=== PATIENT | female | born 1945 | race American Indian/Alaskan Native ===

== ENCOUNTER 2017-01-22 07:53 | Day surgery (SDC) | payer MEDICARE ==
[2017-01-22 08:31] VITALS: BMI 22.8
[2017-01-22 09:07] VITALS: O2SAT 100
--- NOTE | 2017-01-22 10:41 | CP.SDSHP ---
Same Day Surgery H & P - History Proposed Procedure: COLONSCOPY Pre-Op Diagnosis: SEE NOTES - Previous Medical/Surgical History Cardiac: Hypertension Endocrine/Metabolic: Diabetes Misc: Other Pain: 4.Moderate Pain - Allergies Allergies: Allergies No Known Allergies Allergy (Verified 01/22/17 08:31) - Physical Exam General Appearance: N Vital Signs: Vital Signs 01/22/17 08:05 Temperature 97.0 F L Pulse Rate 80 Respiratory 19 Rate Blood Pressure 132/56 L O2 Sat by Pulse 100 Oximetry Mental Status: Alert & Oriented x3 Neuro: WNL Heart: Other Lungs: WNL GI: Other - {Optional Preform as Required} Breast: WNL Abdomen: Other Rectal: Other Integument: WNL : WNL Ortho: WNL ENT: WNL - Impression Pt. Evaluated Today:Candidate for Anesthesia & Procedure: Yes - Date & Time Time: 10:42 Short Stay Discharge - Short Stay Discharge Admitting Diagnosis/Reason for Visit: ANEMIA / RECTAL BLEEDING Disposition: HOME/ ROUTINE
[2017-01-22] MEDS ORDERED: Belladonna-Phenobarbital PO ONE (10:43)
[2017-01-22] MEDS ORDERED: Lactated Ringer's 1,000 ML IV SCH (10:45)
[2017-01-22] MEDS ORDERED: Propofol 10 mg/ml Inj (20 ML) ONE (10:45)
[2017-01-22 13:22] VITALS: BP 152/68; PULSE 78; RESP 15; TEMP 97.6
== END 2017-01-22 12:45 | disposition home or self-care (01) ==
LOC: C.ENDO 07:53
PROVIDERS: ATTEND Specialist
DX: R10.9 Unspecified abdominal pain (principal); K58.9 Irritable bowel syndrome, unspecified; K64.8 Other hemorrhoids
CPT/HCPCS: 45380; 82948; 88305; J2704; J7120

== ENCOUNTER 2017-12-12 10:10 | Inpatient (IN) | payer MEDICARE ==
[2017-12-12 10:10] VITALS: BMI 22.8
[2017-12-12] MEDS ORDERED: Sodium Chloride 0.9% 1,000 ML IV STA (10:56)
--- NOTE | 2017-12-12 11:03 | C.PDOC ---
History Of Present Illness 72 y/o F c PMHx DM p/w hyperglycemia. Patient visited at home by PMD/nurse and found to have glucose 700 and called today to come to ED. Patient reports general fatigue and urinary frequency but denies fever, chills, chest pain, dyspnea, vomiting, diarrhea, dysuria, rash. Time Seen by Provider: 12/12/17 10:20 Chief Complaint (Nursing): High Blood Sugar Past Medical History Vital Signs: Last Vital Signs Temp 97.5 F L 12/12/17 10:16 Pulse 102 H 12/12/17 10:16 Resp 20 12/12/17 10:16 BP 123/82 12/12/17 10:16 Pulse Ox 100 12/12/17 11:03 - Medical History PMH: Anemia, Back Problems, Diabetes, HTN, Hypercholesterolemia, Pneumonia (2014 ) Denies: Fractures, Chronic Kidney Disease Surgical History: Endoscopy - [facility] Procedures CLOSED ENDOSCOPIC BIOPSY OF LARGE INTESTINE (08/12/14) EXCISION OF STOMACH, ENDO, DIAGN (10/30/15) VACCINATION NEC (08/15/14) Family History: States: Unknown Family Hx - Social History Hx Tobacco Use: Yes Hx Alcohol Use: No Hx Substance Use: No - Immunization History Hx Tetanus Toxoid Vaccination: No Hx Influenza Vaccination: No Hx Pneumococcal Vaccination: No Review Of Systems Except As Marked, All Systems Reviewed And Found Negative. Constitutional: Negative for: Fever Cardiovascular: Negative for: Chest Pain Physical Exam - Physical Exam Additional Physical Exam Comments: Gen: NAD Head: NC Eyes: No scleral icterus ENT: MMM Neck: Supple Chest: No deformity CV: Regular rate Lungs: CTA b/l Abd: Soft, NT Back: No CVA tenderness Skin: No rash Neuro: Alert, no focal deficit ED Course And Treatment - Laboratory Results Result Diagrams: 12/12/17 11:07 12/12/17 11:07 O2 Sat by Pulse Oximetry: 100 Medical Decision Making Medical Decision Making: Discussed case with Dr. Tre Gaviria, will rule out DKA, search for occult infection. Patient with hyperglycemia, acute renal insufficiency, will hydrate, insulin, Dr. Clayton accepts to his service. Disposition Discussed With : Sheldon Clayton - Disposition Disposition: HOSPITALIZED Disposition Time: 13:12 Condition: GUARDED Forms: [employer] ([place]) - Clinical Impression Clinical Impression: Diabetic ketoacidosis
[2017-12-12] MEDS ORDERED: Sodium Chloride 0.9% 1,000 ML ONE ×3 (11:07→17:25)
[2017-12-12 11:14] LABS: BASO % 0.7 % (0.0-2.0); EOS # 0.1 K/uL (0.0-0.7); EOS % 1.9 % (0.0-4.0); LYMPH # 0.8 K/uL (1.0-4.3); LYMPH % 14.9 % (20.0-40.0); MEAN CORPUSCULAR HEMOGLOBIN 32.2 pg (27.0-31.0); MEAN CORPUSCULAR HGB CONC 33.3 g/dL (33.0-37.0); MEAN PLATELET VOLUME 8.7 fL (7.2-11.7); MONO # 0.3 K/uL (0.0-0.8); MONO % 5.5 % (0.0-10.0); RBC 3.49 Mil/uL (3.80-5.20); RED CELL DISTRIBUTION WIDTH 13.9 % (11.5-14.5)
[2017-12-12 11:23] LABS: HEMOGLOBIN 11.2 g/dL (11.0-16.0); MEAN CELL VOLUME 96.6 fL (81.0-99.0); WHITE BLOOD COUNT 5.3 K/uL (4.8-10.8)
[2017-12-12 11:41] LABS: VENOUS BLOOD GAS BASE EXCESS -3.7 mmol/L (0.0-2.0); VENOUS BLOOD GAS PCO2 50 mmHg (40-60); VENOUS BLOOD GAS PO2 14 mm/Hg (30-55); VENOUS BLOOD PH 7.28 (7.32-7.43)
[2017-12-12 11:56] LABS: ALB/GLOB RATIO 1.2 (1.0-2.1); ALT/SGPT 18 U/L (9-52); AST/SGOT 22 U/L (14-36); BLOOD UREA NITROGEN 33 mg/dL (7-17); CALCIUM 9.6 mg/dl (8.6-10.4); GFR AFRICAN-AMERICAN 49; GFR NON-AFRICAN AMERICAN 40; LIPASE 81 U/L (23-300)
--- NOTE | 2017-12-12 12:11 | RAD ---
HISTORY: hyperglycemia COMPARISON: Chest x-ray performed 06/28/16 TECHNIQUE: Chest, one view. FINDINGS: Examination limited by patient obliquity. LUNGS: Mild patchy opacities in the right hilar/ infrahilar region; correlate clinically for possibility of infiltrate. Tiny left upper lobe calcified granulomas. Please note that chest x-ray has limited sensitivity for the detection of pulmonary masses. PLEURA: No significant pleural effusion identified. No definite pneumothorax . CARDIOVASCULAR: The cardiomediastinal silhouette appears within normal limits of size. OSSEOUS STRUCTURES: No acute osseous abnormality identified. VISUALIZED UPPER ABDOMEN: Unremarkable. OTHER FINDINGS: None. IMPRESSION: Mild patchy opacities in the right hilar/ infrahilar region; correlate clinically for possibility of infiltrate.
[2017-12-12] MEDS ORDERED: (Novolin R) Insulin Human Regular 100 units/ml vial SC STA (13:13)
[2017-12-12] MEDS ORDERED: (Novolin R) Insulin Human Regular 100 units/ml vial ONE (13:45)
[2017-12-12 14:35] LABS: SQUAMOUS EPITHIAL 1 /hpf (0-5); URINE BILIRUBIN NEGATIVE (NEGATIVE); URINE BLOOD NEGATIVE (NEGATIVE); URINE CLARITY Clear (Clear); URINE COLOR Straw (YELLOW); URINE GLUCOSE (UA) 3+ mg/dL (Normal); URINE LEUKOCYTE ESTERASE NEG Leu/uL (Negative); URINE NITRATE NEGATIVE (NEGATIVE); URINE PROTEIN 1+ mg/dL (NEGATIVE); URINE UROBILINOGEN NORMAL mg/dL (0.2-1.0)
[2017-12-12] MEDS: Sodium Chloride 0.9% 1,000 ML IV SCH (17:29)
[2017-12-12] MEDS: (Novolin R) Insulin Human Regular 100 units/ml vial SC SCH ×2 (17:48→21:31)
[2017-12-12] MEDS ORDERED: (Lantus) Insulin Glargine, Recombinant SC SCH (18:00)
[2017-12-12 19:38] LABS: BLOOD UREA NITROGEN 27 mg/dL (7-17); CALCIUM 9.7 mg/dl (8.6-10.4); GFR AFRICAN-AMERICAN 59; GFR NON-AFRICAN AMERICAN 49
--- NOTE | 2017-12-12 20:13 | CP.PCM.HP ---
History of Present Illness - History of Present Illness History of Present Illness: CC: Weakness x 3 days History Of Present Illness 72 y/o AA F well known to me with PMHx of type 2 DM p/w hyperglycemia, HTN, Hyperlipidemia, peripheral neuropaty who came in with c/o dizziness, weakness, polyuria, polydipsia, generalized weakness and fatigue since 3 days. Patient visited at home by nurse and found to have glucose 700 and called today to come to ED. Patient reports general fatigue and urinary frequency but denies fever, chills, chest pain, dyspnea, vomiting, diarrhea, dysuria, rash.she denies any cough, sore throat, chest pain Present on Admission - Present on Admission Any Indicators Present on Admission: Yes Review of Systems - Review of Systems Systems not reviewed;Unavailable: Acuity of Condition - Constitutional Constitutional: Fatigue, Lethargy, Malaise, Weakness - EENT Eyes: absent: As Per HPI, Blind Spots, Blurred Vision, Change in Vision, Decreased Night Vision, Diplopia, Discharge, Dry Eye, Exophthalmos, Floaters, Irritation, Itchy Eyes, Loss of Peripheral Vision, Pain, Photophobia, Requires Corrective Lenses, Sees Flashes, Spots in Vision, Tunnel Vision, Other Visual Disturbances, Loss of Vision, Other Ears: absent: As Per HPI, Decreased Hearing, Ear Discharge, Ear Pain, Tinnitus, Abnormal Hearing, Disequilibrium, Dizziness, Other Nose/Mouth/Throat: absent: As Per HPI, Epistaxis, Nasal Congestion, Nasal Discharge, Nasal Obstruction, Nasal Trauma, Nose Pain, Post Nasal Drip, Sinus Pain, Sinus Pressure, Bleeding Gums, Change in Voice, Dental Pain, Dry Mouth, Dysphagia, Halitosis, Hoarsness, Lip Swelling, Mouth Lesions, Mouth Pain, Odynophagia, Sore Throat, Throat Swelling, Tongue Swelling, Facial Pain, Neck Pain, Neck Mass, Other - Cardiovascular Cardiovascular: absent: As Per HPI, Acrocyanosis, Chest Pain, Chest Pain at Rest , Chest Pain with Activity, Claudication, Diaphoresis, Dyspnea, Dyspnea on Exertion, Edema, Irregular Heart Rhythm, Pain Radiating to Arm/Neck/Jaw, Leg Edema, Leg Ulcers, Lightheadedness, Orthopnea, Palpitations, Paroxysmal Nocturnal Dyspnea, Pedal Edema, Radiating Pain, Rapid Heart Rate, Slow Heart Rate, Syncope, Other - Respiratory Respiratory: absent: As Per HPI, Cough, Dyspnea, Hemoptysis, Dyspnea on Exertion , Wheezing, Snoring, Stridor, Pain on Inspiration, Chest Congestion, Excessive Mucous Production, Change in Mucous Color, Pain with Coughing, Other - Gastrointestinal Gastrointestinal: absent: As Per HPI, Abdominal Pain, Belching, Bloating, Change in Bowel Habits, Change in Stool Character, Coffee Ground Emesis, Constipation, Cramping, Diarrhea, Dyspepsia, Dysphagia, Early Satiety, Excessive Flatus, Fecal Incontinence, Heartburn, Hematemesis, Hematochezia, Loose Stools, Melena, Nausea, Odynophagia, Temesmus, Vomiting, Other - Genitourinary Genitourinary: Urinary Frequency. absent: As Per HPI, Change in Urinary Stream , Difficulty Urinating, Dysuria, Flank Pain, Hematuria, Pyuria, Nocturia, Urinary Incontinence, Urinary Hesitance, Urinary Urgency, Voiding Freq/Small Amts, Freq UTI, Hx Renal/Bladder Calculi, Hx /Renal Surgery, Bladder Distension, Other - Musculoskeletal Musculoskeletal: Muscle Weakness, Myalgias, Numbness - Integumentary Integumentary: Dry Skin - Neurological Neurological: Radicular Pain, Weakness - Endocrine Endocrine: Fatigue, Polyphagia, Polyuria Past Patient History - Infectious Disease Hx of Infectious Diseases: None - Past Medical History & Family History Past Medical History?: Yes - Past Social History Smoking Status: Light Smoker < 10 Cigarettes Daily - CARDIAC Hx Hypercholesterolemia: Yes Hx Hypertension: Yes - PULMONARY Hx Pneumonia: Yes (2014) - NEUROLOGICAL Hx Neurological Disorder: No - HEENT Hx HEENT Problems: Yes Hx Cataracts: Yes Hx Macular Degeneration: Yes Other/Comment: DIABETIC RETINOPATHY - RENAL Hx Chronic Kidney Disease: No - ENDOCRINE/METABOLIC Hx Endocrine Disorders: Yes Hx Diabetes Mellitus Type 1: Yes Hx Diabetes Mellitus Type 2: Yes - HEMATOLOGICAL/ONCOLOGICAL Hx Anemia: Yes Hx Blood Transfusions: Yes - INTEGUMENTARY Hx Dermatological Problems: No - MUSCULOSKELETAL/RHEUMATOLOGICAL Hx Arthritis: Yes Hx Falls: No Hx Fractures: No - GASTROINTESTINAL Hx Gastrointestinal Disorders: No - GENITOURINARY/GYNECOLOGICAL Hx Genitourinary Disorders: No - PSYCHIATRIC Hx Substance Use: No - SURGICAL HISTORY Hx Surgeries: Yes Hx Hysterectomy: Yes - ANESTHESIA Hx Anesthesia: Yes Hx Anesthesia Reactions: No Hx Malignant Hyperthermia: No Meds Allergies/Adverse Reactions: Allergies Allergy/AdvReac Type Severity Reaction Status Date / Time No Known Allergies Allergy Verified 01/22/17 08:31 Physical Exam - Constitutional Appears: No Acute Distress - Head Exam Head Exam: ATRAUMATIC, NORMAL INSPECTION, NORMOCEPHALIC - Eye Exam Eye Exam: EOMI, Normal appearance, PERRL Pupil Exam: NORMAL ACCOMODATION, PERRL - Respiratory Exam Respiratory Exam: Clear to Auscultation Bilateral, NORMAL BREATHING PATTERN - Cardiovascular Exam Cardiovascular Exam: REGULAR RHYTHM - GI/Abdominal Exam GI & Abdominal Exam: Normal Bowel Sounds, Soft. absent: Tenderness - Rectal Exam Rectal Exam: Deferred Results - Vital Signs Recent Vital Signs: Last Vital Signs Temp 98.1 F 12/12/17 19:48 Pulse 84 12/12/17 19:48 Resp 18 12/12/17 19:48 BP 130/76 12/12/17 19:48 Pulse Ox 100 12/12/17 19:48 - Labs Result Diagrams: 12/12/17 11:07 12/13/17 11:29 Labs: Laboratory Results - last 24 hr 12/12/17 12/12/17 12/12/17 10:28 11:07 11:07 WBC 5.3 D RBC 3.49 L Hgb 11.2 D Hct 33.7 L MCV 96.6 D MCH 32.2 H MCHC 33.3 RDW 13.9 Plt Count 274 MPV 8.7 Neut % (Auto) 77.0 H Lymph % (Auto) 14.9 L [place] % (Auto) 5.5 Eos % (Auto) 1.9 Baso % (Auto) 0.7 Neut # (Auto) 4.0 Lymph # (Auto) 0.8 L [place] # (Auto) 0.3 Eos # (Auto) 0.1 Baso # (Auto) 0.0 Puncture Site pO2 Ming Test VBG pH VBG pCO2 VBG HCO3 VBG O2 Sat (Calc) VBG Base Excess Sodium 124 L Potassium 5.3 H Chloride 90 L Carbon Dioxide 23 Anion Gap 17 BUN 33 H Creatinine 1.3 H Est GFR ( Amer) 49 Est GFR (Non-Af Amer) 40 POC Glucose (mg/dL) > 500 H* Random Glucose 693 H* D Calcium 9.6 Total Bilirubin 0.5 AST 22 ALT 18 Alkaline Phosphatase 83 Total Protein 7.3 Albumin 4.0 Globulin 3.3 Albumin/Globulin Ratio 1.2 Lipase 81 Urine Color Urine Clarity Urine pH Ur Specific [place] Urine Protein Urine Glucose (UA) Urine Ketones Urine Blood Urine Nitrate Urine Bilirubin Urine Urobilinogen Ur Leukocyte Esterase Urine WBC (Auto) Urine RBC (Auto) Ur Squamous Epith Cells Serum Ketones Trace 12/12/17 12/12/17 12/12/17 11:37 13:45 14:20 WBC RBC Hgb Hct MCV MCH MCHC RDW Plt Count MPV Neut % (Auto) Lymph % (Auto) [place] % (Auto) Eos % (Auto) Baso % (Auto) Neut # (Auto) Lymph # (Auto) Reeves # (Auto) Eos # (Auto) Baso # (Auto) Puncture Site Venous pO2 14 L Ming Test Na VBG pH 7.28 L VBG pCO2 50 VBG HCO3 19.7 VBG O2 Sat (Calc) 28.7 L VBG Base Excess -3.7 L Sodium Potassium Chloride Carbon Dioxide Anion Gap BUN Creatinine Est GFR ( Amer) Est GFR (Non-Af Amer) POC Glucose (mg/dL) 462 H* Random Glucose Calcium Total Bilirubin AST ALT Alkaline Phosphatase Total Protein Albumin Globulin Albumin/Globulin Ratio Lipase Urine Color Straw Urine Clarity Clear Urine pH 5.0 Ur Specific [place] 1.018 Urine Protein 1+ H Urine Glucose (UA) 3+ H Urine Ketones Negative Urine Blood Negative Urine Nitrate Negative Urine Bilirubin Negative Urine Urobilinogen Normal Ur Leukocyte Esterase Neg Urine WBC (Auto) < 1 Urine RBC (Auto) 2 Ur Squamous Epith Cells 1 Serum Ketones 12/12/17 12/12/17 12/12/17 15:22 17:00 19:22 WBC RBC Hgb Hct MCV MCH MCHC RDW Plt Count MPV Neut % (Auto) Lymph % (Auto) Reeves % (Auto) Eos % (Auto) Baso % (Auto) Neut # (Auto) Lymph # (Auto) Reeves # (Auto) Eos # (Auto) Baso # (Auto) Puncture Site pO2 Ming Test VBG pH VBG pCO2 VBG HCO3 VBG O2 Sat (Calc) VBG Base Excess Sodium 132 Potassium 4.5 Chloride 100 Carbon Dioxide 23 Anion Gap 14 BUN 27 H Creatinine 1.1 Est GFR ( Amer) 59 Est GFR (Non-Af Amer) 49 POC Glucose (mg/dL) 152 H 73 Random Glucose 178 H Calcium 9.7 Total Bilirubin AST ALT Alkaline Phosphatase Total Protein Albumin Globulin Albumin/Globulin Ratio Lipase Urine Color Urine Clarity Urine pH Ur Specific [place] Urine Protein Urine Glucose (UA) Urine Ketones Urine Blood Urine Nitrate Urine Bilirubin Urine Urobilinogen Ur Leukocyte Esterase Urine WBC (Auto) Urine RBC (Auto) Ur Squamous Epith Cells Serum Ketones Negative Assessment & Plan (1) Diabetic ketoacidosis Status: Acute (2) Diabetes mellitus Status: Chronic Priority: Medium (3) Hypertension Status: Chronic Priority: Medium
[2017-12-12] MEDS ORDERED: (Lantus) Insulin Glargine, Recombinant SC ONE (21:29)
[2017-12-13] VITALS: RESP 20
[2017-12-13] MEDS: (Novolin R) Insulin Human Regular 100 units/ml vial SC SCH ×3 (07:57→17:30)
[2017-12-13] MEDS: (Lantus) Insulin Glargine, Recombinant SC SCH ×2 (10:10→22:10)
[2017-12-13] MEDS: Enoxaparin 40 mg Syringe SC SCH (10:12)
[2017-12-13] MEDS: Sodium Chloride 0.9% 1,000 ML IV SCH ×4 (10:13→20:45)
[2017-12-13 12:05] LABS: ALBUMIN 3.7 g/dL (3.5-5.0); ALT/SGPT 22 U/L (9-52); AST/SGOT 29 U/L (14-36); BLOOD UREA NITROGEN 22 mg/dL (7-17); CALCIUM 9.8 mg/dl (8.6-10.4); GFR AFRICAN-AMERICAN > 60; GFR NON-AFRICAN AMERICAN 55
--- NOTE | 2017-12-13 13:48 | CARD ---
APPROVED REPORT EKG Measurement Heart [id number] <Conclusion> Normal sinus rhythm Possible Left atrial enlargement Right bundle branch block Abnormal ECG
--- NOTE | 2017-12-13 23:35 | CP.PCM.PN ---
Subjective - Date & Time of Evaluation Date of Evaluation: 12/13/17 Time of Evaluation: 18:35 - Subjective Subjective: Pt seen and examined at bedside, she is on medical management blood sugars monitoring, insulin, Iv fluids Objective - Vital Signs/Intake and Output Vital Signs (last 24 hours): Temp Pulse Resp BP Pulse Ox 98.7 F 93 H 20 129/70 99 12/13/17 15:00 12/13/17 15:00 12/13/17 15:00 12/13/17 15:00 12/13/17 15:00 Intake and Output: 12/13/17 12/14/17 18:59 06:59 Intake Total 800 650 Balance 800 650 - Medications Medications: Current Medications Aspirin (Aspirin Chewable) 81 mg PO DAILY [facility] Last Admin: 12/13/17 10:10 Dose: 81 mg Enalapril Maleate (Vasotec) 20 mg PO DAILY [facility] Last Admin: 12/13/17 10:10 Dose: 20 mg Enoxaparin Sodium (Lovenox) 40 mg SC DAILY [facility] Last Admin: 12/13/17 10:12 Dose: 40 mg Ferrous Sulfate (Feosol) 325 mg PO DAILY [facility] Last Admin: 12/13/17 10:10 Dose: 325 mg Sodium Chloride (Sodium Chloride 0.9%) 1,000 mls @ 100 mls/hr IV .Q10H [facility] Last Admin: 12/13/17 20:45 Dose: Not Given Insulin Glargine (Lantus) 25 unit SC Q12 [facility] Last Admin: 12/13/17 22:10 Dose: 25 units Insulin Human Regular (Novolin R) 0 unit SC ACHS [facility] PRN Reason: Protocol Last Admin: 12/13/17 17:30 Dose: 3 unit Rosuvastatin Calcium (Crestor) 5 mg PO DAILY@1700 [facility] Last Admin: 12/13/17 18:01 Dose: 5 mg Sitagliptin Phosphate (Januvia) 100 mg PO DAILY [facility] Last Admin: 12/13/17 10:10 Dose: 100 mg - Labs Labs: 12/12/17 11:07 12/13/17 11:29 - Constitutional Appears: No Acute Distress - Head Exam Head Exam: ATRAUMATIC, NORMAL INSPECTION, NORMOCEPHALIC - Eye Exam Eye Exam: EOMI, Normal appearance, PERRL Pupil Exam: NORMAL ACCOMODATION, PERRL - Respiratory Exam Respiratory Exam: Clear to Ausculation Bilateral, NORMAL BREATHING PATTERN - Cardiovascular Exam Cardiovascular Exam: REGULAR RHYTHM, +S1, +S2. absent: Murmur - GI/Abdominal Exam GI & Abdominal Exam: Soft, Normal Bowel Sounds. absent: Tenderness - Neurological Exam Neurological Exam: Alert, Awake, CN II-XII Intact, Normal Gait, Oriented x3 - Psychiatric Exam Psychiatric exam: Normal Affect, Normal Mood Assessment and Plan (1) Diabetic ketoacidosis Status: Acute (2) Diabetes mellitus Status: Chronic (3) Hypertension Status: Chronic
[2017-12-14] MEDS: (Novolin R) Insulin Human Regular 100 units/ml vial SC SCH (07:50)
[2017-12-14 08:12] VITALS: BP 121/67; TEMP 98; O2SAT 98
[2017-12-14 08:28] VITALS: PULSE 66
[2017-12-14] MEDS: Enoxaparin 40 mg Syringe SC SCH (09:48)
[2017-12-14] MEDS: (Lantus) Insulin Glargine, Recombinant SC SCH (10:12)
--- NOTE | 2017-12-14 16:47 | CP.PCM.PN ---
Objective - Vital Signs/Intake and Output Vital Signs (last 24 hours): Temp Pulse Resp BP Pulse Ox 98.0 F 66 20 121/67 98 12/14/17 07:05 12/14/17 08:25 12/14/17 07:05 12/14/17 07:05 12/14/17 07:05 Intake and Output: 12/14/17 12/14/17 06:59 18:59 Intake Total 650 Balance 650 - Labs Labs: 12/12/17 11:07 12/13/17 11:29 Assessment and Plan - Assessment and Plan (Free Text) Assessment: Patient is seen and examined.
--- NOTE | 2017-12-14 23:08 | CP.PCM.DIS ---
Provider - Provider Date of Admission: 12/12/17 13:12 Attending physician: Sheldon Clayton MD Diagnosis - Discharge Diagnosis (1) Diabetic ketoacidosis Status: Acute (2) Diabetes mellitus Status: Chronic Priority: Medium (3) Hypertension Status: Chronic Priority: Medium Hospital Course - Lab Results Lab Results: Most Recent Lab Values WBC 5.3 K/uL (4.8-10.8) D 12/12/17 11:07 RBC 3.49 Mil/uL (3.80-5.20) L 12/12/17 11:07 Hgb 11.2 g/dL (11.0-16.0) D 12/12/17 11:07 Hct 33.7 % (34.0-47.0) L 12/12/17 11:07 MCV 96.6 fL (81.0-99.0) D 12/12/17 11:07 MCH 32.2 pg (27.0-31.0) H 12/12/17 11:07 MCHC 33.3 g/dL (33.0-37.0) 12/12/17 11:07 RDW 13.9 % (11.5-14.5) 12/12/17 11:07 Plt Count 274 K/uL (130-400) 12/12/17 11:07 MPV 8.7 fL (7.2-11.7) 12/12/17 11:07 Neut % (Auto) 77.0 % (50.0-75.0) H 12/12/17 11:07 Lymph % (Auto) 14.9 % (20.0-40.0) L 12/12/17 11:07 [place] % (Auto) 5.5 % (0.0-10.0) 12/12/17 11:07 Eos % (Auto) 1.9 % (0.0-4.0) 12/12/17 11:07 Baso % (Auto) 0.7 % (0.0-2.0) 12/12/17 11:07 Neut # (Auto) 4.0 K/uL (1.8-7.0) 12/12/17 11:07 Lymph # (Auto) 0.8 K/uL (1.0-4.3) L 12/12/17 11:07 [place] # (Auto) 0.3 K/uL (0.0-0.8) 12/12/17 11:07 Eos # (Auto) 0.1 K/uL (0.0-0.7) 12/12/17 11:07 Baso # (Auto) 0.0 K/uL (0.0-0.2) 12/12/17 11:07 Puncture Site Venous 12/12/17 11:37 pO2 14 mm/Hg (30-55) L 12/12/17 11:37 Ming Test Na 12/12/17 11:37 VBG pH 7.28 (7.32-7.43) L 12/12/17 11:37 VBG pCO2 50 mmHg (40-60) 12/12/17 11:37 VBG HCO3 19.7 mmol/L 12/12/17 11:37 VBG O2 Sat (Calc) 28.7 % (40-65) L 12/12/17 11:37 VBG Base Excess -3.7 mmol/L (0.0-2.0) L 12/12/17 11:37 Sodium 136 mmol/L (132-148) 12/13/17 11:29 Potassium 4.8 mmol/L (3.6-5.2) 12/13/17 11:29 Chloride 104 mmol/L (98-107) 12/13/17 11:29 Carbon Dioxide 24 mmol/L (22-30) 12/13/17 11:29 Anion Gap 13 (10-20) 12/13/17 11:29 BUN 22 mg/dL (7-17) H 12/13/17 11:29 Creatinine 1.0 mg/dL (0.7-1.2) 12/13/17 11:29 Est GFR ( Amer) > 60 12/13/17 11:29 Est GFR (Non-Af Amer) 55 12/13/17 11:29 POC Glucose (mg/dL) 225 mg/dL (65-110) H 12/14/17 11:37 Random Glucose 86 mg/dL (65-105) 12/13/17 11:29 Calcium 9.8 mg/dl (8.6-10.4) 12/13/17 11:29 Total Bilirubin 0.3 mg/dL (0.2-1.3) 12/13/17 11:29 AST 29 U/L (14-36) 12/13/17 11:29 ALT 22 U/L (9-52) 12/13/17 11:29 Alkaline Phosphatase 79 U/L (38-126) 12/13/17 11:29 Total Protein 7.2 g/dL (6.3-8.3) 12/13/17 11:29 Albumin 3.7 g/dL (3.5-5.0) 12/13/17 11:29 Globulin 3.5 gm/dL (2.2-3.9) 12/13/17 11:29 Albumin/Globulin Ratio 1.0 (1.0-2.1) 12/13/17 11:29 Lipase 81 U/L (23-300) 12/12/17 11:07 Urine Color Straw (YELLOW) 12/12/17 14:20 Urine Clarity Clear (Clear) 12/12/17 14:20 Urine pH 5.0 (5.0-8.0) 12/12/17 14:20 Ur Specific [place] 1.018 (1.003-1.030) 12/12/17 14:20 Urine Protein 1+ mg/dL (NEGATIVE) H 12/12/17 14:20 Urine Glucose (UA) 3+ mg/dL (Normal) H 12/12/17 14:20 Urine Ketones Negative mg/dL (NEGATIVE) 12/12/17 14:20 Urine Blood Negative (NEGATIVE) 12/12/17 14:20 Urine Nitrate Negative (NEGATIVE) 12/12/17 14:20 Urine Bilirubin Negative (NEGATIVE) 12/12/17 14:20 Urine Urobilinogen Normal mg/dL (0.2-1.0) 12/12/17 14:20 Ur Leukocyte Esterase Neg Peter/uL (Negative) 12/12/17 14:20 Urine WBC (Auto) < 1 /hpf (0-5) 12/12/17 14:20 Urine RBC (Auto) 2 /hpf (0-3) 12/12/17 14:20 Ur Squamous Epith Cells 1 /hpf (0-5) 12/12/17 14:20 Serum Ketones Negative (NEGATIVE) 12/13/17 11:29 Discharge Exam - Head Exam Head Exam: ATRAUMATIC, NORMAL INSPECTION, NORMOCEPHALIC Discharge Plan - Follow Up Plan Condition: GUARDED Disposition: HOSPICE - HOME Instructions: Hyperglycemia, Adult, Hyperglycemia, Adult (DC) Additional Instructions: Follow up with DR Clayton next week
== END 2017-12-14 14:40 | disposition hospice, home (50) | DRG 639 ==
LOC: C.ER 10:10 → C.9E 13:12 → C.6T 22:57
PROVIDERS: ADMIT Internal Medicine; ATTEND Internal Medicine
DX: E11.10 Type 2 diabetes mellitus with ketoacidosis without coma (principal); N28.9 Disorder of kidney and ureter, unspecified; E11.65 Type 2 diabetes mellitus with hyperglycemia; E78.00 Pure hypercholesterolemia, unspecified; H35.30 Unspecified macular degeneration; E11.319 Type 2 diabetes mellitus with unspecified diabetic retinopathy without macular edema; I10 Essential (primary) hypertension; E11.42 Type 2 diabetes mellitus with diabetic polyneuropathy; F17.210 Nicotine dependence, cigarettes, uncomplicated

== ENCOUNTER 2018-12-26 23:18 | Emergency (ER) | payer MEDICARE ==
[2018-12-26 23:18] VITALS: BMI 22.8
[2018-12-26 23:30] VITALS: BP 184/73; PULSE 84; RESP 20; TEMP 98.7; O2SAT 100
--- NOTE | 2018-12-27 00:10 | C.PDOC ---
History Of Present Illness 73 year old female presents to the ED c/o right thigh pain that started yesterday. Patient was seen by her PMD this afternoon, patient received injection that helped with the pain. Patient also c/o nausea with no vomiting. Patient denies fever, chills, vomit, rash, trauma, injury, fall, weakness, numbness, recent travel, recent immobilization. Time Seen by Provider: 12/26/18 23:39 Chief Complaint (Nursing): Lower Extremity Problem/Injury History Per: Patient History/Exam Limitations: no limitations Onset/Duration Of Symptoms: Days Current Symptoms Are (Timing): Still Present Recent travel outside of the [place]: No Additional History Per: Patient Past Medical History Reviewed: Historical Data, Nursing Documentation, Vital Signs Vital Signs: Last Vital Signs Temp 98.7 F 12/26/18 23:26 Pulse 84 12/26/18 23:26 Resp 20 12/26/18 23:26 BP 184/73 H 12/26/18 23:26 Pulse Ox 100 12/26/18 23:26 - Medical History PMH: Anemia, Arthritis, Back Problems, Diabetes, HTN, Hypercholesterolemia, Pneumonia (2014) Denies: Fractures, Chronic Kidney Disease Surgical History: Endoscopy - [facility] Procedures CLOSED ENDOSCOPIC BIOPSY OF LARGE INTESTINE (08/12/14) EXCISION OF STOMACH, ENDO, DIAGN (10/30/15) VACCINATION NEC (08/15/14) Family History: States: Unknown Family Hx - Social History Hx Tobacco Use: Yes Hx Alcohol Use: No Hx Substance Use: No - Immunization History Hx Tetanus Toxoid Vaccination: No Hx Influenza Vaccination: No Hx Pneumococcal Vaccination: No Review Of Systems Constitutional: Negative for: Fever, Chills Cardiovascular: Negative for: Chest Pain, Palpitations Respiratory: Negative for: Shortness of Breath Gastrointestinal: Negative for: Nausea, Vomiting Musculoskeletal: Positive for: Leg Pain Skin: Negative for: Rash Neurological: Negative for: Weakness, Numbness Physical Exam - Physical Exam Appears: Non-toxic, No Acute Distress Skin: Normal Color, Warm, Dry Head: Atraumatic, Normacephalic Eye(s): bilateral: Normal Inspection Neck: Normal ROM, Supple Chest: Symmetrical Cardiovascular: Rhythm Regular Respiratory: Normal Breath Sounds, No Rales, No Rhonchi, No Wheezing Gastrointestinal/Abdominal: No Tenderness, No Hernia Extremity: Normal ROM, No Tenderness (to right thigh on palpation), No Pedal Edema, No Calf Tenderness, Capillary Refill (< 2 seconds), No Swelling, Other (no erythema to lower extremities, mass) Pulses: Left Dorsalis Pedis: Normal, Right Dorsalis Pedis: Normal Neurological/Psych: Oriented x3, Normal Speech, Normal Cognition, Normal Motor, Normal Sensation Gait: Steady ED Course And Treatment O2 Sat by Pulse Oximetry: 100 (ON RA) Pulse Ox Interpretation: Normal Progress Note: Plan: - Tramadol 50 mg PO. Patient was given Tramadol for pain, on reevaluation patient was found soundly sleeping. Patient reports improvement to pain after medication was given. Patient was advised to follow up with PMD. Disposition Counseled Patient/Family Regarding: Diagnosis, Need For Followup, Rx Given - Disposition Referrals: Sheldon Clayton MD [Staff Provider] - Disposition: HOME/ ROUTINE Disposition Time: 00:08 Condition: STABLE Additional Instructions: Follow up with PMD in 1-2 days Take medication as directed Return to ER if worse Prescriptions: traMADol [Ultram] 50 mg PO TID #10 tab Instructions: Muscle and Bone Pain (DC) Forms: [employer] (Chinese) - Clinical Impression Clinical Impression: Right thigh pain - PA / SOCIAL INSURANCE ADMINISTRATOR / Resident Statement MD/DO has reviewed & agrees with the documentation as recorded. - Scribe Statement The provider has reviewed the documentation as recorded by the Scribrula Boone All medical record entries made by the Scribrula were at my direction and personally dictated by me. I have reviewed the chart and agree that the record accurately reflects my personal performance of the history, physical exam, medical decision making, and the department course for this patient. I have also personally directed, reviewed, and agree with the discharge instructions and disposition.
== END 2018-12-27 00:18 | disposition home or self-care (01) ==
LOC: C.ER 23:18
DX: M79.651 Pain in right thigh (principal)

== ENCOUNTER 2018-12-27 08:12 | Emergency (ER) | payer MEDICARE ==
[2018-12-27 08:12] VITALS: BMI 22.8
[2018-12-27 08:29] VITALS: TEMP 99.3
--- NOTE | 2018-12-27 08:49 | C.PDOC ---
History Of Present Illness 73 year old with a history of hypertension, hyperlipidemia, and diabetes female presents to the ED for evaluation of persistent right thigh pain and swelling associated with vomiting for 2 days. The pt states the pain is constant but worse when standing. She notes prior PMD visit where she was given an unknown injection for similar symptoms. Per records, the patient was treated yesterday for same, given tramadol with improvement in symptoms, and discharged home at 00:08. She notes taking medications for HPT, HLD, and diabetes as directed. Denies fever, chills, chest pain, shortness of breath, recent trauma/falls, and any other associated symptoms. Time Seen by Provider: 12/27/18 08:27 Chief Complaint (Nursing): Lower Extremity Problem/Injury History Per: Patient History/Exam Limitations: no limitations Onset/Duration Of Symptoms: Days (x2) Current Symptoms Are (Timing): Still Present Recent travel outside of the [place]: No Past Medical History Reviewed: Historical Data, Nursing Documentation, Vital Signs Vital Signs: Last Vital Signs Temp 99.3 F 12/27/18 08:24 Pulse 75 12/27/18 08:24 Resp 16 12/27/18 08:24 BP 195/76 H 12/27/18 08:24 Pulse Ox 100 12/27/18 08:24 - Medical History PMH: Anemia, Arthritis, Back Problems, Diabetes, HTN, Hypercholesterolemia, Pneumonia (2015) Denies: Fractures, Chronic Kidney Disease Surgical History: Endoscopy - [facility] Procedures CLOSED ENDOSCOPIC BIOPSY OF LARGE INTESTINE (08/12/14) EXCISION OF STOMACH, ENDO, DIAGN (10/30/15) VACCINATION NEC (08/15/14) Family History: States: Unknown Family Hx - Social History Hx Tobacco Use: Yes Hx Alcohol Use: No Hx Substance Use: No - Immunization History Hx Tetanus Toxoid Vaccination: No Hx Influenza Vaccination: No Hx Pneumococcal Vaccination: No Review Of Systems Except As Marked, All Systems Reviewed And Found Negative. Constitutional: Negative for: Fever, Chills Cardiovascular: Negative for: Chest Pain Respiratory: Negative for: Shortness of Breath Gastrointestinal: Positive for: Vomiting Musculoskeletal: Positive for: Leg Pain (right thigh pain. ) Physical Exam - Physical Exam Appears: Non-toxic, Other (mild distress. ) Skin: Warm, Dry, No Other (lower extremities: (-) erythema. (-) skin intact. ) Head: Atraumatic, Normacephalic Eye(s): bilateral: Normal Inspection Oral Mucosa: Moist Neck: Normal ROM, Supple Chest: Symmetrical, No Deformity Cardiovascular: Rhythm Regular, No Murmur Respiratory: Normal Breath Sounds, No Rales, No Rhonchi, No Wheezing, No Other (NARD) Gastrointestinal/Abdominal: Normal Exam, Soft, No Tenderness Extremity: Normal ROM, No Tenderness (no focal tenderness. ), No Pedal Edema, No Deformity, Swelling (to the right thigh.), Other ((-) no asymmetry to lower legs. ) Pulses: Left Dorsalis Pedis: Normal, Right Dorsalis Pedis: Normal Neurological/Psych: Oriented x3, Normal Speech, Normal Cognition, Normal Motor, Normal Sensation, Normal Reflexes ED Course And Treatment - Laboratory Results Result Diagrams: 12/27/18 09:52 12/27/18 09:52 O2 Sat by Pulse Oximetry: 100 (RA) Pulse Ox Interpretation: Normal - Other Rad RT Femur X-ray X-Ray: Interpreted by Me, Viewed By Me Interpretation: negative findings. - CT Scan/US VENOUS R LEG Other Rad Studies (CT/US): Radiology Report Reviewed (NEG PER TECH REPORT) Progress - Re-Evaluation Re-evaluation Note: 12/27/18 12:37 FEELS BETTER. TOLERATING PO WO DIFF - Data Reviewed Data Reviewed: Lab, Diagnostic imaging, Old records Medical Decision Making Medical Decision Making: Initial Plan: -Tordaol -Zofran -X-ray RT Femur -Venous Duplex Scan Low Ext RT Disposition Counseled Patient/Family Regarding: Studies Performed, Diagnosis, Need For Followup, Rx Given - Disposition Referrals: YOUR,PMD [Other] Disposition: HOME/ ROUTINE Disposition Time: 12:37 Condition: IMPROVED Additional Instructions: YOU HAVE A NORMAL DOPPLER STUDY, LEG CT SCAN AND LEG XRAY. TAKE MEDICATIONS PRESCRIBED. FOLLOW UP WITH YOUR PMD Prescriptions: Naproxen 500 mg PO BID #30 tab Ondansetron ODT [Zofran ODT] 4 mg PO TID PRN #12 odt PRN Reason: Nausea/Vomiting Instructions: Muscle and Bone Pain (DC) Forms: [employer] (Central African) - Clinical Impression Clinical Impression: Leg pain, Vomiting - Scribe Statement The provider has reviewed the documentation as recorded by the Scribe (Negra Hutchinson) Provider Attestation: All medical record entries made by the Scribe were at my direction and personally dictated by me. I have reviewed the chart and agree that the record accurately reflects my personal performance of the history, physical exam, medical decision making, and the department course for this patient. I have also personally directed, reviewed, and agree with the discharge instructions and disposition.
[2018-12-27 09:58] LABS: MEAN CELL VOLUME 98.5 fL (81.0-99.0); MEAN CORPUSCULAR HEMOGLOBIN 32.9 pg (27.0-31.0); MEAN CORPUSCULAR HGB CONC 33.4 g/dL (33.0-37.0); MEAN PLATELET VOLUME 7.7 fL (7.2-11.7); PLATELET COUNT 367 K/uL (130-400); RBC 3.03 Mil/uL (3.80-5.20); RED CELL DISTRIBUTION WIDTH 14.1 % (11.5-14.5)
[2018-12-27 10:03] LABS: WHITE BLOOD COUNT 8.9 K/uL (4.8-10.8)
[2018-12-27 10:07] LABS: BLOOD UREA NITROGEN 23 mg/dL (7-17); CALCIUM 9.4 mg/dl (8.6-10.4); GFR NON-AFRICAN AMERICAN 55
[2018-12-27] MEDS ORDERED: Iodixanol 320 MG/ML 100 ML BOTTLE IV ONE (11:03)
[2018-12-27 12:05] LABS: MONO # 0.1 K/uL (0.0-0.8); NEUT # 7.8 K/uL (1.8-7.0)
--- NOTE | 2018-12-27 12:36 | CT ---
Date of service: 12/27/2018 PROCEDURE: CT of the right thigh with contrast HISTORY: R THIGH PAIN, SWELL. NEG VENOUS DUPLEX COMPARISON: No prior similar study available for comparison. TECHNIQUE: Axial and reformatted coronal and sagittal CT images of the right upper thigh were obtained after IV contrast administration. IV contrast dose: 100 mL of Visipaque 320 intravenously. Total exam DLP: 384.43 FINDINGS: There is no evidence of suspicious mass at the visualized portion of the right thigh. No evidence of abscess formation or discrete fluid collection. Nonspecific mild subcutaneous fat stranding noted at the medial aspect of the upper right thigh. The right femoral vein and artery are patent. No evidence of destructive bony lesion. The visualized portion of the right hip is grossly unremarkable. IMPRESSION: Mild subcutaneous fat stranding at the medial aspect of the right upper thigh. No evidence of abscess formation or discrete enhancing mass lesion.
[2018-12-27 13:09] VITALS: BP 185/70; PULSE 101; RESP 18; O2SAT 99
--- NOTE | 2018-12-27 15:45 | RAD ---
Date of service: 12/27/2018 PROCEDURE: X-ray of the right femur HISTORY: PAIN COMPARISON: No prior similar study available for comparison TECHNIQUE: AP and lateral views of the right femur were obtained. FINDINGS: There is no evidence of acute fracture or destructive bony lesion. Vascular calcification is noted. Arthritic degenerative changes noted at the right hip and right knee. IMPRESSION: No evidence of acute pathology.
--- NOTE | 2018-12-29 13:14 | VASCLAB ---
Date of service: 12/27/2018 PROCEDURE: Right Lower Extremity Venous Duplex Exam. HISTORY: THIGH SWELL. Pain PRIORS: None. TECHNIQUE: Right common femoral, femoral, popliteal and posterior tibial, peroneal and great saphenous veins were evaluated. Flow was assessed with color Doppler, compressibility, assessment of phasic flow and augmentation response. Report prepared by Jose Almaguer, T FINDINGS: RIGHT: 1. Common Femoral Vein: 1.1. Compressibility - Fully compressible: Thrombus - None: Flow - Phasic: Augmentation -Normal: Reflux - . 2. Femoral Vein: 2.1. Compressibility - Fully compressible: Thrombus - None: Flow - Phasic: Augmentation -Normal: Reflux - . 3. Popliteal Vein: 3.1. Compressibility - Fully compressible: Thrombus - None: Flow - Phasic: Augmentation -Normal: Reflux - . 4. Posterior Tibial Vein: 4.1. Compressibility - Fully compressible: Thrombus - None: Flow - Phasic: Augmentation -Normal: Reflux - . 5. Peroneal Vein: 5.1. Compressibility - Fully compressible: Thrombus - None: Flow - Phasic: Augmentation -Normal: Reflux - . 6. Great Saphenous Vein: 6.1. Compressibility - Fully compressible: Thrombus -None: Flow - Phasic: Augmentation - Normal: Reflux - . OTHER FINDINGS: IMPRESSION: No evidence of deep or superficial vein thrombosis of the right lower extremity with excellent venous flow. Normal venous flow noted in the left common femoral vein.
== END 2018-12-27 13:09 | disposition home or self-care (01) ==
LOC: C.ER 08:12
DX: M79.604 Pain in right leg (principal); R11.10 Vomiting, unspecified; I10 Essential (primary) hypertension; E78.00 Pure hypercholesterolemia, unspecified; E11.9 Type 2 diabetes mellitus without complications; F17.210 Nicotine dependence, cigarettes, uncomplicated
CPT/HCPCS: 73552; 73701; 80048; 85025; 93971; 96372; 96374; 99285; J1885; J2270; Q9967

== ENCOUNTER 2018-12-28 04:21 | Inpatient (IN) | payer MEDICARE ==
[2018-12-28 04:22] VITALS: BMI 22.8
[2018-12-28] MEDS ORDERED: Sodium Chloride 0.9% 1,000 ML IV ONE (04:56)
--- NOTE | 2018-12-28 04:56 | C.PDOC ---
History Of Present Illness 73 year old female presents to the ED c/o nausea, vomit and unable to tolerate PO. Patient was seen in the ED in the past 2 days. Patient had negative blood work, DVT study. However patient's daughter reports patient still vomiting and unable to tolerate PO. Patient denies fever, chills, diarrhea, dysuria, hematuria, rash, injury, fall, trauma. Time Seen by Provider: 12/28/18 04:55 Chief Complaint (Nursing): Abdominal Pain History Per: Patient, Family History/Exam Limitations: no limitations Onset/Duration Of Symptoms: Days Current Symptoms Are (Timing): Still Present Context: Other Severity: Moderate Pain Scale Rating Of: 4 Location Of Pain/Discomfort: Diffuse Radiation Of Pain To:: None Quality Of Discomfort: "Pain" Associated Symptoms: Nausea, Vomiting, Loss Of Appetite. denies: Diarrhea, Urin rebel Symptoms Alleviating Factors: None Last Bowel Movement: Yesterday Recent travel outside of the [place]: No Additional History Per: Patient Abnormal Vaginal Bleeding: No Past Medical History Reviewed: Historical Data, Nursing Documentation, Vital Signs Vital Signs: Last Vital Signs Temp 99.1 F 12/28/18 04:38 Pulse 90 12/28/18 04:38 Resp 18 12/28/18 04:38 BP 192/77 H 12/28/18 04:38 Pulse Ox 100 12/28/18 04:38 - Medical History PMH: Anemia, Arthritis, Back Problems, Diabetes, HTN, Hypercholesterolemia, Pneumonia (2015) Denies: Fractures, Chronic Kidney Disease Surgical History: Endoscopy - [facility] Procedures CLOSED ENDOSCOPIC BIOPSY OF LARGE INTESTINE (08/12/14) EXCISION OF STOMACH, ENDO, DIAGN (10/30/15) VACCINATION NEC (08/15/14) Family History: States: Unknown Family Hx - Social History Hx Tobacco Use: Yes Hx Alcohol Use: No Hx Substance Use: No - Immunization History Hx Tetanus Toxoid Vaccination: No Hx Influenza Vaccination: No Hx Pneumococcal Vaccination: No Review Of Systems Constitutional: Negative for: Fever, Chills Cardiovascular: Negative for: Chest Pain Respiratory: Negative for: Shortness of Breath Gastrointestinal: Positive for: Nausea, Vomiting, Abdominal Pain. Negative for: Diarrhea Skin: Negative for: Rash Neurological: Negative for: Weakness, Numbness, Headache, Dizziness Physical Exam - Physical Exam Appears: Non-toxic, No Acute Distress Skin: Warm, Dry Head: Normacephalic Eye(s): bilateral: Normal Inspection Oral Mucosa: Dry Neck: Supple Chest: Symmetrical Cardiovascular: Rhythm Regular Respiratory: No Rales, No Rhonchi, No Wheezing Gastrointestinal/Abdominal: Soft, Tenderness (mild mid epigastric), No Guarding, No Rebound Back: Normal Inspection Extremity: Capillary Refill (< 2 seconds) Extremity: Right: Other (swelling thigh, old), Bilateral: Atraumatic, Normal Color And Temperature, Normal ROM Pulses: Left Dorsalis Pedis: Normal, Right Dorsalis Pedis: Normal Neurological/Psych: Oriented x3, Normal Speech, Normal Cognition Gait: With Assistance ED Course And Treatment - Laboratory Results Result Diagrams: 12/28/18 05:08 12/28/18 05:08 ECG: Interpreted By Me, Viewed By Me ECG Rhythm: Sinus Rhythm (73), R BBB, Nonspecific Changes O2 Sat by Pulse Oximetry: 100 (On RA) Pulse Ox Interpretation: Normal Progress Note: Plan: - EKG. - Labs. - Protonix 40 mg IVP. - Zofran 4 mg IVP. - IV fluids. - UA Disposition Discussed With : Sheldon Clayton Comment: accepted the pt on his service and took over the care at 6:42 AM Doctor Will See Patient In The: Hospital Counseled Patient/Family Regarding: Studies Performed, Diagnosis - Disposition Disposition: HOSPITALIZED Disposition Time: 04:56 Condition: FAIR Forms: [facility] (Amharic) - POA Present On Arrival: Poor Glycemic Control - Clinical Impression Clinical Impression: Nausea, Vomiting, Leg pain, Gastroparesis - Scribe Statement The provider has reviewed the documentation as recorded by the Scribe Oli Boone All medical record entries made by the Scribe were at my direction and personally dictated by me. I have reviewed the chart and agree that the record accurately reflects my personal performance of the history, physical exam, medical decision making, and the department course for this patient. I have also personally directed, reviewed, and agree with the discharge instructions and disposition. Decision To Admit - Pt Status Changed To: Hospital Disposition Of: Inpatient - Admit Certification Admit to Inpatient:: After my assessment, the patient will require hospitalization for at least two midnights. This is because of the severity of symptoms shown, intensity of services needed, and/or the medical risk in this patient being treated as an outpatient. - InPatient: Physician Admission Certification:: After my assessment, the patient will require hospitalization for at least two midnights. This is because of the severity of symptoms shown, intensity of services needed, and/or the medical risk in this patient being treated as an outpatient. - . Bed Request Type: Regular Admitting Physician: Sheldon Clayton Patient Diagnosis: Nausea, Vomiting, Leg pain, Gastroparesis
[2018-12-28 05:13] LABS: BASO # 0.1 K/uL (0.0-0.2); BASO % 0.7 % (0.0-2.0); HEMOGLOBIN 10.6 g/dL (11.0-16.0); LYMPH # 0.7 K/uL (1.0-4.3); MEAN CORPUSCULAR HEMOGLOBIN 32.1 pg (27.0-31.0); MEAN CORPUSCULAR HGB CONC 32.8 g/dL (33.0-37.0); MEAN PLATELET VOLUME 7.7 fL (7.2-11.7); MONO # 0.2 K/uL (0.0-0.8); MONO % 2.8 % (0.0-10.0); NEUT # 7.3 K/uL (1.8-7.0); NEUT % 88.5 % (50.0-75.0); PLATELET COUNT 373 K/uL (130-400); RED CELL DISTRIBUTION WIDTH 14.4 % (11.5-14.5); WHITE BLOOD COUNT 8.2 K/uL (4.8-10.8)
[2018-12-28 05:35] LABS: ALB/GLOB RATIO 1.4 (1.0-2.1); ALBUMIN 4.2 g/dL (3.5-5.0); CALCIUM 8.5 mg/dl (8.6-10.4)
[2018-12-28 07:23] LABS: SQUAMOUS EPITHIAL 5 /hpf (0-5); URINE BACTERIA RARE (<OCC); URINE BILIRUBIN NEGATIVE (NEGATIVE); URINE BLOOD 2+ (NEGATIVE); URINE CLARITY Hazy (Clear); URINE COLOR Yellow (YELLOW); URINE GLUCOSE (UA) 1+ mg/dL (Normal); URINE LEUKOCYTE ESTERASE NEG Leu/uL (Negative); URINE PROTEIN 2+ mg/dL (NEGATIVE); URINE UROBILINOGEN NORMAL mg/dL (0.2-1.0)
[2018-12-28 08:23] LABS: LYMPHOCYTE 7 % (20-40); MONOCYTE 3 % (0-10); NEUTROPHIL 90 % (50-75); TOTAL CELLS COUNTED 100
[2018-12-28 08:24] LABS: ANISOCYTOSIS SLIGHT; PLATELET ESTIMATE NORMAL (NORMAL)
[2018-12-28 08:25] LABS: LARGE PLATELETS PRESENT; POLYCHROMIC SLIGHT
[2018-12-28] MEDS ORDERED: Dextrose 50% SYRINGE Inj (50 ml) IV PRN (11:06)
[2018-12-28] MEDS ORDERED: Glucagon Recombinant 1 mg Inj IM PRN (11:06)
--- NOTE | 2018-12-28 12:46 | US ---
Date of service: 12/28/2018 HISTORY: abdominal pain COMPARISON: Comparison is made to the previous CT dated 10/30/2015 previous ultrasound of the abdomen dated 08/17/2014 TECHNIQUE: Sonographic evaluation of the abdomen. FINDINGS: LIVER: Measures 14.2 cm. Normal echogenicity of the liver parenchyma. No mass. No intrahepatic bile duct dilatation. GALLBLADDER: Unremarkable. No gallstones. COMMON BILE DUCT: Measures 5.5 mm. No stones. No dilatation. PANCREAS: Unremarkable as visualized. No mass. No ductal dilatation. RIGHT KIDNEY: Measures 10 x 4.3 x 4.5cm. Normal echogenicity. No calculus, mass, or hydronephrosis. LEFT KIDNEY: Measures 10 x 5.1 x 4.9cm. Normal echogenicity. No calculus, mass, or hydronephrosis. SPLEEN: Normal in size and contour. No mass. AORTA: No aneurysmal dilatation. IVC: Unremarkable. OTHER FINDINGS: None. IMPRESSION: No sonographic evidence of acute pathology in the abdomen.
[2018-12-28] MEDS: (Novolin R) Insulin Human Regular 100 units/ml vial SC SCH ×3 (13:00→20:00)
[2018-12-28] MEDS: Lactated Ringer's 1,000 ML IV SCH ×2 (13:27→21:47)
[2018-12-28 15:17] LABS: SQUAMOUS EPITHIAL 4 /hpf (0-5); URINE BILIRUBIN NEGATIVE (NEGATIVE); URINE BLOOD 1+ (NEGATIVE); URINE CLARITY Hazy (Clear); URINE COLOR Yellow (YELLOW); URINE GLUCOSE (UA) 2+ mg/dL (Normal); URINE LEUKOCYTE ESTERASE NEG Leu/uL (Negative); URINE PROTEIN 3+ mg/dL (NEGATIVE); URINE UROBILINOGEN NORMAL mg/dL (0.2-1.0)
[2018-12-28] MEDS: Enoxaparin 30 mg Syringe SC SCH (17:17)
--- NOTE | 2018-12-28 18:24 | CP.PCM.HP ---
Present on Admission - Present on Admission Any Indicators Present on Admission: Yes History of Uncontrolled Diabetes: Yes Past Patient History - Infectious Disease Hx of Infectious Diseases: None - Past Medical History & Family History Past Medical History?: Yes - Past Social History Smoking Status: Light Smoker < 10 Cigarettes Daily - CARDIAC Hx Hypercholesterolemia: Yes Hx Hypertension: Yes - PULMONARY Hx Pneumonia: Yes (2014) - NEUROLOGICAL Hx Neurological Disorder: No - HEENT Hx HEENT Problems: Yes Hx Cataracts: Yes Hx Macular Degeneration: Yes Other/Comment: DIABETIC RETINOPATHY - RENAL Hx Chronic Kidney Disease: No - ENDOCRINE/METABOLIC Hx Endocrine Disorders: Yes Hx Diabetes Mellitus Type 2: Yes - HEMATOLOGICAL/ONCOLOGICAL Hx Anemia: Yes Hx Blood Transfusions: Yes (2017) - INTEGUMENTARY Hx Dermatological Problems: No - MUSCULOSKELETAL/RHEUMATOLOGICAL Hx Falls: No - GASTROINTESTINAL Hx Gastrointestinal Disorders: No - GENITOURINARY/GYNECOLOGICAL Hx Genitourinary Disorders: No - PSYCHIATRIC Hx Substance Use: No - SURGICAL HISTORY Hx Surgeries: Yes Hx Hysterectomy: Yes - ANESTHESIA Hx Anesthesia: Yes Hx Anesthesia Reactions: No Hx Malignant Hyperthermia: No Meds Allergies/Adverse Reactions: Allergies Allergy/AdvReac Type Severity Reaction Status Date / Time No Known Allergies Allergy Verified 12/26/18 23:24 Results - Vital Signs Recent Vital Signs: Last Vital Signs Temp 98.5 F 12/28/18 08:10 Pulse 78 12/28/18 08:10 Resp 20 12/28/18 08:10 BP 159/79 H 12/28/18 08:10 Pulse Ox 99 12/28/18 08:10 - Labs Result Diagrams: 12/28/18 05:08 12/28/18 05:08 Labs: Laboratory Results - last 24 hr 12/28/18 12/28/18 12/28/18 03:57 05:08 05:08 WBC 8.2 RBC 3.30 L Hgb 10.6 L Hct 32.3 L MCV 98.0 MCH 32.1 H MCHC 32.8 L RDW 14.4 Plt Count 373 MPV 7.7 Neut % (Auto) 88.5 H Lymph % (Auto) 8.0 L [place] % (Auto) 2.8 Eos % (Auto) 0.0 Baso % (Auto) 0.7 Neut # (Auto) 7.3 H Lymph # (Auto) 0.7 L [place] # (Auto) 0.2 Eos # (Auto) 0.0 Baso # (Auto) 0.1 Neutrophils % (Manual) 90 H Lymphocytes % (Manual) 7 L Monocytes % (Manual) 3 Platelet Estimate Normal Large Platelets Present Polychromasia Slight Anisocytosis (manual) Slight Macrocytosis (manual) Slight Sodium 133 Potassium 5.0 Chloride 103 Carbon Dioxide 22 Anion Gap 14 BUN 32 H Creatinine 1.1 Est GFR ( Amer) 59 Est GFR (Non-Af Amer) 49 POC Glucose (mg/dL) 264 H Random Glucose 234 H Calcium 8.5 L Total Bilirubin 0.9 AST 29 ALT 18 Alkaline Phosphatase 78 Total Protein 7.2 Albumin 4.2 Globulin 3.0 Albumin/Globulin Ratio 1.4 Lipase 52 Urine Color Urine Clarity Urine pH Ur Specific [place] Urine Protein Urine Glucose (UA) Urine Ketones Urine Blood Urine Nitrate Urine Bilirubin Urine Urobilinogen Ur Leukocyte Esterase Urine WBC (Auto) Urine RBC (Auto) Ur Squamous Epith Cells Urine Bacteria 12/28/18 12/28/18 12/28/18 07:14 08:43 11:32 WBC RBC Hgb Hct MCV MCH MCHC RDW Plt Count MPV Neut % (Auto) Lymph % (Auto) [place] % (Auto) Eos % (Auto) Baso % (Auto) Neut # (Auto) Lymph # (Auto) [place] # (Auto) Eos # (Auto) Baso # (Auto) Neutrophils % (Manual) Lymphocytes % (Manual) Monocytes % (Manual) Platelet Estimate Large Platelets Polychromasia Anisocytosis (manual) Macrocytosis (manual) Sodium Potassium Chloride Carbon Dioxide Anion Gap BUN Creatinine Est GFR ( Amer) Est GFR (Non-Af Amer) POC Glucose (mg/dL) 252 H 239 H Random Glucose Calcium Total Bilirubin AST ALT Alkaline Phosphatase Total Protein Albumin Globulin Albumin/Globulin Ratio Lipase Urine Color Yellow Urine Clarity Hazy Urine pH 6.0 Ur Specific [place] 1.032 H Urine Protein 2+ H Urine Glucose (UA) 1+ Urine Ketones Trace Urine Blood 2+ H Urine Nitrate Negative Urine Bilirubin Negative Urine Urobilinogen Normal Ur Leukocyte Esterase Neg Urine WBC (Auto) 5 Urine RBC (Auto) 17 H Ur Squamous Epith Cells 5 Urine Bacteria Rare 12/28/18 12/28/18 15:10 16:07 WBC RBC Hgb Hct MCV MCH MCHC RDW Plt Count MPV Neut % (Auto) Lymph % (Auto) [place] % (Auto) Eos % (Auto) Baso % (Auto) Neut # (Auto) Lymph # (Auto) [place] # (Auto) Eos # (Auto) Baso # (Auto) Neutrophils % (Manual) Lymphocytes % (Manual) Monocytes % (Manual) Platelet Estimate Large Platelets Polychromasia Anisocytosis (manual) Macrocytosis (manual) Sodium Potassium Chloride Carbon Dioxide Anion Gap BUN Creatinine Est GFR ( Amer) Est GFR (Non-Af Amer) POC Glucose (mg/dL) 229 H Random Glucose Calcium Total Bilirubin AST ALT Alkaline Phosphatase Total Protein Albumin Globulin Albumin/Globulin Ratio Lipase Urine Color Yellow Urine Clarity Hazy Urine pH 6.0 Ur Specific [place] 1.020 Urine Protein 3+ H Urine Glucose (UA) 2+ H Urine Ketones Trace Urine Blood 1+ H Urine Nitrate Negative Urine Bilirubin Negative Urine Urobilinogen Normal Ur Leukocyte Esterase Neg Urine WBC (Auto) 1 Urine RBC (Auto) 7 H Ur Squamous Epith Cells 4 Urine Bacteria
[2018-12-28] MEDS ORDERED: Iohexol 240 (50 ml) PO ONE (19:30)
[2018-12-28] MEDS ORDERED: Iodixanol 320 MG/ML 100 ML BOTTLE IV ONE (19:48)
--- NOTE | 2018-12-28 20:51 | CP.PCM.CON ---
History of Present Illness - History of Present Illness History of Present Illness: 73 F admitted for Nausea and unable to take PO consulted for HTN management ECHO ordered Past Patient History - Infectious Disease Hx of Infectious Diseases: None - Past Medical History & Family History Past Medical History?: Yes - Past Social History Smoking Status: Light Smoker < 10 Cigarettes Daily - CARDIAC Hx Hypercholesterolemia: Yes Hx Hypertension: Yes - PULMONARY Hx Pneumonia: Yes (2014) - NEUROLOGICAL Hx Neurological Disorder: No - HEENT Hx HEENT Problems: Yes Hx Cataracts: Yes Hx Macular Degeneration: Yes Other/Comment: DIABETIC RETINOPATHY - RENAL Hx Chronic Kidney Disease: No - ENDOCRINE/METABOLIC Hx Endocrine Disorders: Yes Hx Diabetes Mellitus Type 2: Yes - HEMATOLOGICAL/ONCOLOGICAL Hx Anemia: Yes Hx Blood Transfusions: Yes (2017) - INTEGUMENTARY Hx Dermatological Problems: No - MUSCULOSKELETAL/RHEUMATOLOGICAL Hx Falls: No - GASTROINTESTINAL Hx Gastrointestinal Disorders: No - GENITOURINARY/GYNECOLOGICAL Hx Genitourinary Disorders: No - PSYCHIATRIC Hx Substance Use: No - SURGICAL HISTORY Hx Surgeries: Yes Hx Hysterectomy: Yes - ANESTHESIA Hx Anesthesia: Yes Hx Anesthesia Reactions: No Hx Malignant Hyperthermia: No Meds Allergies/Adverse Reactions: Allergies Allergy/AdvReac Type Severity Reaction Status Date / Time No Known Allergies Allergy Verified 12/26/18 23:24 - Medications Medications: Current Medications Amlodipine Besylate (Norvasc) 5 mg PO DAILY [facility] Last Admin: 12/28/18 13:29 Dose: 5 mg Dextrose (Dextrose 50% Inj) 0 ml IV STAT PRN; Protocol PRN Reason: Hypoglycemia Protocol Dextrose (Glutose 15) 0 gm PO ONCE PRN; Protocol PRN Reason: Hypoglycemia Protocol Enalapril Maleate (Vasotec) 20 mg PO DAILY [facility] Enoxaparin Sodium (Lovenox) 30 mg SC DAILY [facility] Last Admin: 12/28/18 17:17 Dose: 30 mg Ferrous Sulfate (Feosol) 325 mg PO DAILY [facility] Glucagon (Glucagen Diagnostic Kit) 0 mg IM STAT PRN; Protocol PRN Reason: Hypoglycemia Protocol Dextrose (Dextrose 5% In Water 1000 Ml) 1,000 mls @ 0 mls/hr IV .Q0M PRN; Protocol PRN Reason: Hypoglycemia Protocol Lactated Ringer's (Lactated Ringer's) 1,000 mls @ 100 mls/hr IV .Q10H [facility] Last Admin: 12/28/18 13:27 Dose: 100 mls/hr Insulin Human Regular (Novolin R) 0 unit SC Q4 [facility]; Protocol Last Admin: 12/28/18 17:32 Dose: 3 units Metoclopramide HCl (Reglan) 10 mg IVP ACHS [facility] Last Admin: 12/28/18 17:17 Dose: 10 mg Morphine Sulfate (Morphine) 2 mg IVP Q4 PRN PRN Reason: pain Last Admin: 12/28/18 14:38 Dose: 2 mg Pantoprazole Sodium (Protonix Inj) 40 mg IVP DAILY [facility] Last Admin: 12/28/18 12:50 Dose: 40 mg Rosuvastatin Calcium (Crestor) 5 mg PO DAILY@1700 [facility] Last Admin: 12/28/18 17:17 Dose: 5 mg Results - Vital Signs Recent Vital Signs: Last Vital Signs Temp 98.5 F 12/28/18 08:10 Pulse 78 12/28/18 08:10 Resp 20 12/28/18 08:10 BP 159/79 H 12/28/18 08:10 Pulse Ox 99 12/28/18 08:10 - Labs Result Diagrams: 12/28/18 05:08 12/28/18 05:08 Labs: Laboratory Results - last 24 hr 12/28/18 12/28/18 12/28/18 03:57 05:08 05:08 WBC 8.2 RBC 3.30 L Hgb 10.6 L Hct 32.3 L MCV 98.0 MCH 32.1 H MCHC 32.8 L RDW 14.4 Plt Count 373 MPV 7.7 Neut % (Auto) 88.5 H Lymph % (Auto) 8.0 L [place] % (Auto) 2.8 Eos % (Auto) 0.0 Baso % (Auto) 0.7 Neut # (Auto) 7.3 H Lymph # (Auto) 0.7 L [place] # (Auto) 0.2 Eos # (Auto) 0.0 Baso # (Auto) 0.1 Neutrophils % (Manual) 90 H Lymphocytes % (Manual) 7 L Monocytes % (Manual) 3 Platelet Estimate Normal Large Platelets Present Polychromasia Slight Anisocytosis (manual) Slight Macrocytosis (manual) Slight Sodium 133 Potassium 5.0 Chloride 103 Carbon Dioxide 22 Anion Gap 14 BUN 32 H Creatinine 1.1 Est GFR ( Amer) 59 Est GFR (Non-Af Amer) 49 POC Glucose (mg/dL) 264 H Random Glucose 234 H Calcium 8.5 L Total Bilirubin 0.9 AST 29 ALT 18 Alkaline Phosphatase 78 Total Protein 7.2 Albumin 4.2 Globulin 3.0 Albumin/Globulin Ratio 1.4 Lipase 52 Urine Color Urine Clarity Urine pH Ur Specific [place] Urine Protein Urine Glucose (UA) Urine Ketones Urine Blood Urine Nitrate Urine Bilirubin Urine Urobilinogen Ur Leukocyte Esterase Urine WBC (Auto) Urine RBC (Auto) Ur Squamous Epith Cells Urine Bacteria 12/28/18 12/28/18 12/28/18 07:14 08:43 11:32 WBC RBC Hgb Hct MCV MCH MCHC RDW Plt Count MPV Neut % (Auto) Lymph % (Auto) [place] % (Auto) Eos % (Auto) Baso % (Auto) Neut # (Auto) Lymph # (Auto) [place] # (Auto) Eos # (Auto) Baso # (Auto) Neutrophils % (Manual) Lymphocytes % (Manual) Monocytes % (Manual) Platelet Estimate Large Platelets Polychromasia Anisocytosis (manual) Macrocytosis (manual) Sodium Potassium Chloride Carbon Dioxide Anion Gap BUN Creatinine Est GFR ( Amer) Est GFR (Non-Af Amer) POC Glucose (mg/dL) 252 H 239 H Random Glucose Calcium Total Bilirubin AST ALT Alkaline Phosphatase Total Protein Albumin Globulin Albumin/Globulin Ratio Lipase Urine Color Yellow Urine Clarity Hazy Urine pH 6.0 Ur Specific [place] 1.032 H Urine Protein 2+ H Urine Glucose (UA) 1+ Urine Ketones Trace Urine Blood 2+ H Urine Nitrate Negative Urine Bilirubin Negative Urine Urobilinogen Normal Ur Leukocyte Esterase Neg Urine WBC (Auto) 5 Urine RBC (Auto) 17 H Ur Squamous Epith Cells 5 Urine Bacteria Rare 12/28/18 12/28/18 15:10 16:07 WBC RBC Hgb Hct MCV MCH MCHC RDW Plt Count MPV Neut % (Auto) Lymph % (Auto) [place] % (Auto) Eos % (Auto) Baso % (Auto) Neut # (Auto) Lymph # (Auto) [place] # (Auto) Eos # (Auto) Baso # (Auto) Neutrophils % (Manual) Lymphocytes % (Manual) Monocytes % (Manual) Platelet Estimate Large Platelets Polychromasia Anisocytosis (manual) Macrocytosis (manual) Sodium Potassium Chloride Carbon Dioxide Anion Gap BUN Creatinine Est GFR ( Amer) Est GFR (Non-Af Amer) POC Glucose (mg/dL) 229 H Random Glucose Calcium Total Bilirubin AST ALT Alkaline Phosphatase Total Protein Albumin Globulin Albumin/Globulin Ratio Lipase Urine Color Yellow Urine Clarity Hazy Urine pH 6.0 Ur Specific [place] 1.020 Urine Protein 3+ H Urine Glucose (UA) 2+ H Urine Ketones Trace Urine Blood 1+ H Urine Nitrate Negative Urine Bilirubin Negative Urine Urobilinogen Normal Ur Leukocyte Esterase Neg Urine WBC (Auto) 1 Urine RBC (Auto) 7 H Ur Squamous Epith Cells 4 Urine Bacteria
[2018-12-29] MEDS: (Novolin R) Insulin Human Regular 100 units/ml vial SC SCH ×6 (00:23→21:37)
--- NOTE | 2018-12-29 02:53 | HP ---
CHIEF COMPLAINT: Diffuse abdominal pain x2 days. HISTORY OF PRESENT ILLNESS: This is a 73-year-old female, well known to me, with history of type 2 diabetes on insulin, hypertension, hyperlipidemia, and osteoarthritis. She is compliant with her diet, medication, and followup. Two days ago, she started acute onset of nausea, vomiting, upper abdominal pain, generalized weakness, and frequency of urination. She denies any dysuria, hematuria, or pyuria. She denies any sneezing, itchy eyes, or itchy nose. There is no history of trauma, fall, or loss of consciousness. She has intractable abdominal pain. She is tossing and turning. She denies any hematuria or pyuria. She denies any history of direct trauma to the abdomen. She denies any history of cough, sore throat, or running nose. There is no history of seizure-like activity. Pain is intense. It is diffuse mostly in the periumbilical area with no radiation to the back, and this pain is not radiating to (01:10). She is already tossing and turning, and movement does not aggravate the pain. PAST MEDICAL HISTORY: Type 2 diabetes, hypertension, and hyperlipidemia. SOCIAL HISTORY: She is a nonsmoker, non-ETOH user. CURRENT MEDICATIONS: She is on tramadol, Januvia, Zofran, Lantus, Naprosyn, iron, Lipitor, and Lotrel. PHYSICAL EXAMINATION: GENERAL: An elderly female in distress. She is tossing and turning. VITAL SIGNS: Blood pressure 192/77, pulse 90, respiratory rate 18, temperature 99.1. SKIN: Senile turgor. No bruises. No purpura. Dry. HEENT: Atraumatic, normocephalic. Negative pallor. Negative jaundice. Extraocular movements are intact. NECK: Supple. No JVD. No lymph node. No thyromegaly. No carotid bruit. CHEST: Chest wall, bilaterally symmetrical expansion. No tenderness. No deformities. LUNGS: Clear. No rales. No rhonchi. CARDIOVASCULAR SYSTEM: PMI in the fifth intercostal space. S1 and S2, plus S4 positive. No heave noted. No murmur. ABDOMEN: Soft, distended with diffuse tenderness. No guarding. No rebound. No rigidity. Bowel sounds are exaggerated. RECTAL: No masses. No bleed. EXTREMITIES: No clubbing, cyanosis, or edema. CENTRAL NERVOUS SYSTEM: Awake, alert, and oriented x3. Cranial nerves II through XII are normal. Power 5/5 x4. Plantars are downgoing. ASSESSMENT: 1. Upper abdominal pain, rule out diabetic gastroparesis versus ischemic bowel disease versus gastritis versus gastroenteritis versus peptic ulcer disease. 2. Dehydration. 3. Poorly-controlled diabetes. 4. Anemia. PLAN: Admit. Detailed orders are written. Seen and examined. Sheldon Clayton MD
[2018-12-29] MEDS: Lactated Ringer's 1,000 ML IV SCH (06:31)
[2018-12-29] MEDS: Enoxaparin 30 mg Syringe SC SCH (09:19)
--- NOTE | 2018-12-29 11:42 | CT ---
PROCEDURE: CT Abdomen and Pelvis with oral and IV contrast. HISTORY: abdominal pain COMPARISON: CT abdomen and pelvis without IV contrast performed 10/30/15, abdominal ultrasound performed 12/28/18 TECHNIQUE: Contiguous axial images of the abdomen and pelvis. Oral and IV contrast was administered. Coronal and Sagittal reformats generated and reviewed. Contrast dose: 100 mL Visipaque 320 IV Radiation dose: Total exam DLP = 613.76 mGy-cm. This CT exam was performed using one or more of the following dose reduction techniques: Automated exposure control, adjustment of the mA and/or kV according to patient size, and/or use of iterative reconstruction technique. FINDINGS: LOWER THORAX: No visible consolidation, pleural effusion, or pneumothorax. Small hiatal hernia and distal esophageal wall thickening. LIVER: Hypoattenuation of the liver compatible with hepatic steatosis. GALLBLADDER AND BILE DUCTS: Unremarkable. PANCREAS: Unremarkable. SPLEEN: Unremarkable. ADRENALS: Marked bilateral adrenal gland hypertrophy. KIDNEYS AND URETERS: The kidneys enhance symmetrically. No hydronephrosis or obstructing renal calculus. BLADDER: High density fluid within a distended urinary bladder. REPRODUCTIVE: Uterus is absent consistent with hysterectomy. APPENDIX: The appendix appears within normal limits of caliber. No secondary signs of acute appendicitis. BOWEL: The stomach is nondistended. The bowel loops appear within normal limits of caliber without evidence of intestinal obstruction. Moderate diffuse constipation. Diverticulosis without CT evidence of acute diverticulitis. PERITONEUM: No significant free fluid. No definite free air. LYMPH NODES: No bulky lymphadenopathy identified. VASCULATURE: No aortic aneurysm. Atherosclerotic calcifications of the aorta and branches. Aortic ectasia. BONES: Osseous demineralization. Multilevel degenerative changes. Intervertebral disc space narrowing most severe at L2-L3 and L5-S1. OTHER FINDINGS: None. IMPRESSION: Nodular hypertrophy of the adrenal glands. Diverticulosis without CT evidence of acute diverticulitis. Moderate constipation. Hysterectomy. High-density material within the urinary bladder of unclear significance; correlate for possibility of contrast excretion related to prior imaging. Alternatives such as blood products cannot be excluded. Correlate clinically. Ultrasound may be considered if indicated. Small hiatal hernia/distal esophageal wall thickening. Additional findings as above. Preliminary impression was provided by [employer].
--- NOTE | 2018-12-29 12:53 | CARD ---
APPROVED REPORT Date of service: 12/28/2018 EKG Measurement Heart [id number] <Conclusion> Normal sinus rhythm Possible Left atrial enlargement Right bundle branch block Abnormal ECG
--- NOTE | 2018-12-29 16:29 | CARD ---
APPROVED REPORT Date of service: 12/29/2018 EXAM: Two-dimensional and M-mode echocardiogram with Doppler and color Doppler. Other Information Quality : GoodRhythm : INDICATION Dyspnea RISK FACTORS Hypertension Hyperlipidemia Diabetes 2D DIMENSIONS IVSd1.1 (0.7-1.1cm)LVDd4.2 (3.9-5.9cm) PWd1.0 (0.7-1.1cm)LA Flfchn42 (18-58mL) LVDs2.4 (2.5-4.0cm)FS (%) 42.4 % LVEF (%)73.8 (>50%)LVEF (White's)67.07 % M-Mode DIMENSIONS Left Atrium (MM)3.98 (2.5-4.0cm)IVSd0.76 (0.7-1.1cm) Aortic Root3.52 (2.2-3.7cm)LVDd5.16 (4.0-5.6cm) Aortic Cusp Exc.1.85 (1.5-2.0cm)PWd0.85 (0.7-1.1cm) FS (%) 31 %LVDs3.57 (2.0-3.8cm) LVEF (%)58 (>50%) Mitral Valve MV E Qusokvza70.3cm/sMV A Lobuxuij418.8cm/sE/A ratio0.8 TDI Lateral E' Peak V7.32cm/sMedial E' Peak V6.87cm/sE/Lateral E'11.8 E/Medial E'12.6 LEFT VENTRICLE The left ventricle is normal size. There is normal left ventricular wall thickness. The left ventricular function is normal. The left ventricular ejection fraction is within the normal range. There is normal LV segmental wall motion. Transmitral Doppler flow pattern is Grade I-abnormal relaxation pattern. RIGHT VENTRICLE The right ventricle is normal size. The right ventricular systolic function is normal. ATRIA The left atrium index is mildly to moderately increased. AORTIC VALVE The aortic valve is normal in structure. No aortic regurgitation is present. There is no aortic valvular stenosis. MITRAL VALVE The mitral valve is normal in structure. There is no mitral valve regurgitation noted. TRICUSPID VALVE The tricuspid valve is normal in structure. There is no tricuspid valve regurgitation noted. PULMONIC VALVE The pulmonary valve is normal in structure. GREAT VESSELS The aortic root is normal in size. The IVC is normal in size and collapses >50% with inspiration. PERICARDIAL EFFUSION There is no pericardial effusion. <Conclusion> Normal bi-ventricular systolic function. Grade I diastolic dysfunction -abnormal relaxation pattern. The left atrium index is mildly to moderately increased. No gross valvular abnormality. No pericardial effusion.
[2018-12-29 17:10] LABS: AMYLASE 81 U/L (30-110); LIPASE 75 U/L (23-300)
[2018-12-29] MEDS: Bisacodyl 5mg EC Tab PO SCH (18:59)
[2018-12-29] MEDS: Naproxen 550 mg Tab PO SCH (19:06)
--- NOTE | 2018-12-29 21:10 | PN ---
DATE: 12/29/2018 LOCATION 369, bed B. SUBJECTIVE: This is an 73-year-old female, seen initially for GI consultation on 12/28/2018, reexamined again today with recurrent episode of abdominal pain, mild nausea with dyspepsia, but no reported active bleeding or hematemesis. No chest pain or palpitation. The entire chart is reviewed including but not limited to the most recent lab and radiology study results, current and the previous medication list, current and the previous medical events. Case discussed with the staff as well as the admitting MD at length. The entire chart is reviewed including but not limited to the most recent lab and radiology study results, current and the previous medication list, current and the previous medical events and today's lab results however still pending. The patient still has low hemoglobin and hematocrit with low indices highly suggestive of hypochromic microcytic anemia with elevated blood glucose level, but no cancer markers yet ordered. PT and PTT were ordered. Initial CT scan of the abdomen and pelvis as well as official report of ultrasound done yesterday. The report is seen with esophageal wall thickening for which the patient is scheduled for upper endoscopy at a.m. PHYSICAL EXAMINATION: GENERAL: A 73-year-old female. VITAL SIGNS: Low-grade temperature of 99.5, heart rate 70, respiratory rate 20 to 22 with blood pressure of 166/64. HEENT: Showed pale dry oral mucous membrane. Nonicteric sclerae. LUNGS: Few scattered crepitation. Decreased air entry at bases. HEART: Positive S1 and S2. ABDOMEN: Soft with mild generalized tenderness. No mass or organomegaly. No rebound tenderness or guarding. EXTREMITIES: Without significant edema, clubbing or cyanosis. NEUROLOGIC: No reported new focal deficits. IMPRESSION: 1. Re-exacerbation of peptic ulcer disease with abnormal CAT scan of the abdomen and pelvis. 2. Rule out gastric versus duodenal ulcer. 3. Hypochromic microcytic anemia, to rule out gastrointestinal blood loss upper versus lower. 4. Multiple past medical history including but not limited to hypertension, poorly controlled, poorly controlled diabetes mellitus, hyperlipidemia with osteoarthritis and chronic lower back pain syndrome. SUGGESTIONS: 1. Continue current management. 2. Cancer markers. 3. The patient for upper endoscopy at a.m. to be followed by colonoscopy when more stable clinically. 4. Further recommendation to follow. Bhavik Aden MD [facility] # [id number]
[2018-12-29 21:13] LABS: INR 1.1; PROTHROMBIN TIME 12.2 SECONDS (9.7-12.2)
--- NOTE | 2018-12-29 23:05 | CP.PCM.PN ---
Subjective - Date & Time of Evaluation Date of Evaluation: 12/29/18 Time of Evaluation: 08:00 - Subjective Subjective: dictated Objective - Vital Signs/Intake and Output Vital Signs (last 24 hours): Temp Pulse Resp BP Pulse Ox 99.5 F 74 20 173/66 H 96 12/29/18 16:00 12/29/18 16:00 12/29/18 16:00 12/29/18 16:00 12/29/18 16:00 Intake and Output: 12/29/18 12/30/18 18:59 06:59 Intake Total 800 920 Output Total 500 Balance 800 420 - Medications Medications: Current Medications Amlodipine Besylate (Norvasc) 5 mg PO DAILY [facility] Last Admin: 12/29/18 09:21 Dose: 5 mg Belladonna/Phenobarbital () 1 tab PO TID [facility] Bisacodyl (Dulcolax) 10 mg PO Q24H [facility] Last Admin: 12/29/18 18:59 Dose: 10 mg Dextrose (Dextrose 50% Inj) 0 ml IV STAT PRN; Protocol PRN Reason: Hypoglycemia Protocol Dextrose (Glutose 15) 0 gm PO ONCE PRN; Protocol PRN Reason: Hypoglycemia Protocol Enalapril Maleate (Vasotec) 20 mg PO DAILY [facility] Last Admin: 12/29/18 09:19 Dose: 20 mg Enoxaparin Sodium (Lovenox) 30 mg SC DAILY [facility] Last Admin: 12/29/18 09:19 Dose: 30 mg Ferrous Sulfate (Feosol) 325 mg PO DAILY [facility] Last Admin: 12/29/18 09:21 Dose: 325 mg Glucagon (Glucagen Diagnostic Kit) 0 mg IM STAT PRN; Protocol PRN Reason: Hypoglycemia Protocol Dextrose (Dextrose 5% In Water 1000 Ml) 1,000 mls @ 0 mls/hr IV .Q0M PRN; Protocol PRN Reason: Hypoglycemia Protocol Influenza Virus Vaccine (Flucelvax Quad [id number] Syr) 60 mcg IM .ONCE ONE Stop: 12/30/18 10:01 Insulin Human Regular (Novolin R) 0 unit SC [facility]; Protocol Last Admin: 12/29/18 21:37 Dose: Not Given Metoclopramide HCl (Reglan) 10 mg IVP [facility] Last Admin: 12/29/18 21:21 Dose: 10 mg Naproxen (Anaprox Ds) 550 mg PO BID [facility] Last Admin: 12/29/18 19:06 Dose: 550 mg Pantoprazole Sodium (Protonix Inj) 40 mg IVP DAILY [facility] Last Admin: 12/29/18 09:21 Dose: 40 mg - Labs Labs: 12/28/18 05:08 12/28/18 05:08 PT 12.2 SECONDS (9.7-12.2) 12/29/18 20:21 INR 1.1 12/29/18 20:21 APTT 24 SECONDS (21-34) 12/29/18 20:21
--- NOTE | 2018-12-30 00:07 | CP.PCM.PN ---
Subjective - Date & Time of Evaluation Date of Evaluation: 12/29/18 Time of Evaluation: 18:20 - Subjective Subjective: Patient seen and evalauated No cardiac events noted Objective - Vital Signs/Intake and Output Vital Signs (last 24 hours): Temp Pulse Resp BP Pulse Ox 99.6 F 77 20 171/67 H 97 12/29/18 23:56 12/29/18 23:56 12/29/18 23:56 12/29/18 23:56 12/29/18 23:56 Intake and Output: 12/29/18 12/30/18 18:59 06:59 Intake Total 800 920 Output Total 500 Balance 800 420 - Medications Medications: Current Medications Amlodipine Besylate (Norvasc) 5 mg PO DAILY [facility] Last Admin: 12/29/18 09:21 Dose: 5 mg Belladonna/Phenobarbital () 1 tab PO TID [facility] Bisacodyl (Dulcolax) 10 mg PO Q24H [facility] Last Admin: 12/29/18 18:59 Dose: 10 mg Dextrose (Dextrose 50% Inj) 0 ml IV STAT PRN; Protocol PRN Reason: Hypoglycemia Protocol Dextrose (Glutose 15) 0 gm PO ONCE PRN; Protocol PRN Reason: Hypoglycemia Protocol Enalapril Maleate (Vasotec) 20 mg PO DAILY [facility] Last Admin: 12/29/18 09:19 Dose: 20 mg Enoxaparin Sodium (Lovenox) 30 mg SC DAILY [facility] Last Admin: 12/29/18 09:19 Dose: 30 mg Ferrous Sulfate (Feosol) 325 mg PO DAILY [facility] Last Admin: 12/29/18 09:21 Dose: 325 mg Glucagon (Glucagen Diagnostic Kit) 0 mg IM STAT PRN; Protocol PRN Reason: Hypoglycemia Protocol Dextrose (Dextrose 5% In Water 1000 Ml) 1,000 mls @ 0 mls/hr IV .Q0M PRN; Protocol PRN Reason: Hypoglycemia Protocol Influenza Virus Vaccine (Flucelvax Quad [id number] Syr) 60 mcg IM .ONCE ONE Stop: 12/30/18 10:01 Insulin Human Regular (Novolin R) 0 unit SC [facility]; Protocol Last Admin: 12/29/18 21:37 Dose: Not Given Metoclopramide HCl (Reglan) 10 mg IVP [facility] Last Admin: 12/29/18 21:21 Dose: 10 mg Naproxen (Anaprox Ds) 550 mg PO BID [facility] Last Admin: 12/29/18 19:06 Dose: 550 mg Pantoprazole Sodium (Protonix Inj) 40 mg IVP DAILY [facility] Last Admin: 12/29/18 09:21 Dose: 40 mg - Labs Labs: 12/28/18 05:08 12/28/18 05:08 PT 12.2 SECONDS (9.7-12.2) 12/29/18 20:21 INR 1.1 12/29/18 20:21 APTT 24 SECONDS (21-34) 12/29/18 20:21
--- NOTE | 2018-12-30 02:04 | PN ---
DATE: 12/29/2018 SUBJECTIVE: The patient has right hip pain. She denies any abdominal pain. Her nausea, vomiting has resolved. She denies any fever, chills, rigors. No cough. No sore throat. No running nose. No joint pain. She has just right hip pain. She has prior history of left knee pain as well. PHYSICAL EXAMINATION: VITAL SIGNS: Blood pressure 173/66, pulse 74, respiratory rate 20, temperature 99.5. LUNGS: Clear. No rales. No rhonchi. CARDIOVASCULAR SYSTEM: PMI in fifth intercostal space. S1, S2, regular. ABDOMEN: Soft, nontender. Bowel sounds are positive. ASSESSMENT: 1. Right hip pain. Rule out hip sprain. Rule out osteoarthritis. Rule out avascular necrosis of right hip, unlikely. 2. Uncontrolled hypertension. 3. Uncontrolled diabetes. 4. Gastritis, resolved. PLAN: Continue current medications. Discontinue morphine. Start the patient on Naprosyn. Continue Reglan. Continue Protonix. GI evaluation. Physical therapy, rehab. Monitor the patient. Sheldon Clayton MD
[2018-12-30] MEDS: (Novolin R) Insulin Human Regular 100 units/ml vial SC SCH ×4 (07:48→21:51)
[2018-12-30] MEDS ORDERED: Influenza Vaccine 60 mcg/0.5 mL SYR (4YR UP) IM ONE (10:00)
[2018-12-30] MEDS: Naproxen 550 mg Tab PO SCH ×3 (10:09→17:00)
[2018-12-30] MEDS: Belladonna-Phenobarbital PO SCH ×3 (10:09→17:00)
[2018-12-30] MEDS ORDERED: Lidocaine Hydrochloride 5 ML INJ ONE (11:07)
[2018-12-30] MEDS ORDERED: Propofol 10 mg/ml Inj (20 ML) ONE (11:07)
[2018-12-30] MEDS ORDERED: Peg-Electrolyte Oral Soln 4L (Golytely) PO ONE (13:00)
--- NOTE | 2018-12-30 16:06 | RAD ---
Date of service: 12/30/2018 PROCEDURE: HISTORY: pain r hip COMPARISON: 08/15/2014 radiographs obstructive series noted. TECHNIQUE: AP pelvis and frog's leg view. FINDINGS: Contrast within the colon-inferred from recent CT 12/28/2018 noted. There is the loop of bowel over the left sacral wing which appears slightly prominent in its a gaseous distension. No identifying markings valvulae conniventes or haustral markings associated with it are noted. Its appearance and clinical significance, if any is unknown. Please refer to the recent CT abdomen and pelvic study report as well per the presentation manager film this appears represent left colonic loop-portion of the sigmoid colon slightly redundant which is otherwise unremarkable in its appearance per the CT. Left hemipelvic phleboliths. Bilateral osteoarthrosis left hip but greater than right. No fractures or lytic lesion seen. Incidentally noted bordering each ischial tuberosity are likely hamstring tendon calcifications and/or old osseous avulsions here. No acute suspect pathology here suggested. The relative hyperdensity over the small bladder contour may relate to contrast enhanced study/contrast laden bladder urine. Other etiologies not excluded clinical correlation and follow-up recommended. IMPRESSION: No fracture or lytic lesion. Degenerative changes as above actually more pronounced in left non symptomatic or non presenting hip. Correlate clinically Other findings as above.
[2018-12-30] MEDS ORDERED: Bisacodyl 5mg EC Tab PO ONE (17:00)
[2018-12-30] MEDS: Bisacodyl 5mg EC Tab PO SCH (18:45)
--- NOTE | 2018-12-30 21:38 | CP.PCM.PN ---
Subjective - Date & Time of Evaluation Date of Evaluation: 12/30/18 Time of Evaluation: 08:00 - Subjective Subjective: dictated Objective - Vital Signs/Intake and Output Vital Signs (last 24 hours): Temp Pulse Resp BP Pulse Ox 98.3 F 69 20 177/78 H 98 12/30/18 15:55 12/30/18 15:55 12/30/18 15:55 12/30/18 15:55 12/30/18 15:55 Intake and Output: 12/30/18 12/31/18 18:59 06:59 Intake Total 930 Balance 930 - Medications Medications: Current Medications Amlodipine Besylate (Norvasc) 10 mg PO DAILY [facility] Belladonna/Phenobarbital () 1 tab PO TID [facility] Last Admin: 12/30/18 17:00 Dose: 1 tab Bisacodyl (Dulcolax) 10 mg PO Q24H [facility] Last Admin: 12/30/18 18:45 Dose: Not Given Dextrose (Dextrose 50% Inj) 0 ml IV STAT PRN; Protocol PRN Reason: Hypoglycemia Protocol Dextrose (Glutose 15) 0 gm PO ONCE PRN; Protocol PRN Reason: Hypoglycemia Protocol Enalapril Maleate (Vasotec) 20 mg PO BID [facility] Enoxaparin Sodium (Lovenox) 30 mg SC DAILY [facility] Last Admin: 12/29/18 09:19 Dose: 30 mg Ferrous Sulfate (Feosol) 325 mg PO DAILY [facility] Last Admin: 12/29/18 09:21 Dose: 325 mg Glucagon (Glucagen Diagnostic Kit) 0 mg IM STAT PRN; Protocol PRN Reason: Hypoglycemia Protocol Dextrose (Dextrose 5% In Water 1000 Ml) 1,000 mls @ 0 mls/hr IV .Q0M PRN; Protocol PRN Reason: Hypoglycemia Protocol Insulin Human Regular (Novolin R) [address] [facility]; Protocol Last Admin: 12/30/18 16:52 Dose: 1 unit Metoclopramide HCl (Reglan) [address] [facility] Last Admin: 12/30/18 16:53 Dose: 10 mg Naproxen (Anaprox Ds) 550 mg PO BID [facility] Last Admin: 12/30/18 17:00 Dose: 550 mg Pantoprazole Sodium (Protonix Inj) 40 mg IVP DAILY [facility] Last Admin: 12/30/18 10:09 Dose: Not Given - Labs Labs: 12/28/18 05:08 12/28/18 05:08 PT 12.2 SECONDS (9.7-12.2) 12/29/18 20:21 INR 1.1 12/29/18 20:21 APTT 24 SECONDS (21-34) 12/29/18 20:21
--- NOTE | 2018-12-31 00:13 | CP.PCM.PN ---
Subjective - Date & Time of Evaluation Date of Evaluation: 12/30/18 Time of Evaluation: 18:40 - Subjective Subjective: Patient seen and evaluated No cardiac events noted Objective - Vital Signs/Intake and Output Vital Signs (last 24 hours): Temp Pulse Resp BP Pulse Ox 98.3 F 69 20 177/78 H 98 12/30/18 15:55 12/30/18 15:55 12/30/18 15:55 12/30/18 15:55 12/30/18 15:55 Intake and Output: 12/30/18 12/31/18 18:59 06:59 Intake Total 930 1000 Balance 930 1000 - Medications Medications: Current Medications Amlodipine Besylate (Norvasc) 10 mg PO DAILY [facility] Belladonna/Phenobarbital () 1 tab PO TID [facility] Last Admin: 12/30/18 17:00 Dose: 1 tab Bisacodyl (Dulcolax) 10 mg PO Q24H [facility] Last Admin: 12/30/18 18:45 Dose: Not Given Dextrose (Dextrose 50% Inj) 0 ml IV STAT PRN; Protocol PRN Reason: Hypoglycemia Protocol Dextrose (Glutose 15) 0 gm PO ONCE PRN; Protocol PRN Reason: Hypoglycemia Protocol Enalapril Maleate (Vasotec) 20 mg PO BID [facility] Enoxaparin Sodium (Lovenox) 30 mg SC DAILY [facility] Last Admin: 12/29/18 09:19 Dose: 30 mg Ferrous Sulfate (Feosol) 325 mg PO DAILY [facility] Last Admin: 12/29/18 09:21 Dose: 325 mg Glucagon (Glucagen Diagnostic Kit) 0 mg IM STAT PRN; Protocol PRN Reason: Hypoglycemia Protocol Dextrose (Dextrose 5% In Water 1000 Ml) 1,000 mls @ 0 mls/hr IV .Q0M PRN; Protocol PRN Reason: Hypoglycemia Protocol Insulin Human Regular (Novolin R) 0 unit SC [facility]; Protocol Last Admin: 12/30/18 21:51 Dose: Not Given Metoclopramide HCl (Reglan) 10 mg IVP [facility] Last Admin: 12/30/18 21:51 Dose: 10 mg Naproxen (Anaprox Ds) 550 mg PO BID [facility] Last Admin: 12/30/18 17:00 Dose: 550 mg Pantoprazole Sodium (Protonix Inj) 40 mg IVP DAILY [facility] Last Admin: 12/30/18 10:09 Dose: Not Given - Labs Labs: 12/28/18 05:08 12/28/18 05:08 PT 12.2 SECONDS (9.7-12.2) 12/29/18 20:21 INR 1.1 12/29/18 20:21 APTT 24 SECONDS (21-34) 12/29/18 20:21
--- NOTE | 2018-12-31 01:49 | PN ---
DATE: 12/30/2018 SUBJECTIVE: The patient is for colonoscopy tomorrow. She is afebrile. Her blood pressures are high. She has right hip pain. X-rays of the hip show bilateral osteoarthritis of the hip, left more than right. Her nausea, vomiting has been resolved. She still has occasional abdominal pain, right hip pain. No fever. No chills. No dysuria. PHYSICAL EXAMINATION:. VITAL SIGNS: Blood pressure 177/78, pulse 69, respiratory rate 20, temperature 98.3. LUNGS: Clear. No rales. No rhonchi. CARDIOVASCULAR SYSTEM: PMI not localized. S1, S2, regular. No heave. No thrill. ABDOMEN: Soft, nontender. Bowel sounds are positive. ASSESSMENT: 1. Abdominal pain. Etiology to be verified. Pending colonoscopy. 2. Right hip pain due to osteoarthritis. 3. Type 2 diabetes, poorly controlled. 4. Hypertension, poorly controlled. PLAN: Physical therapy. Medical management. Pain management. Monitor the patient. Sheldon Clayton MD
[2018-12-31] MEDS: (Novolin R) Insulin Human Regular 100 units/ml vial SC SCH ×2 (08:19→11:46)
[2018-12-31 09:51] LABS: BASO % 0.7 % (0.0-2.0); EOS # 0.1 K/uL (0.0-0.7); EOS % 1.2 % (0.0-4.0); HEMOGLOBIN 9.7 g/dL (11.0-16.0); LYMPH % 17.3 % (20.0-40.0); MEAN CELL VOLUME 98.2 fL (81.0-99.0); MEAN CORPUSCULAR HEMOGLOBIN 31.7 pg (27.0-31.0); MEAN CORPUSCULAR HGB CONC 32.3 g/dL (33.0-37.0); MEAN PLATELET VOLUME 7.2 fL (7.2-11.7); MONO # 0.4 K/uL (0.0-0.8); MONO % 6.7 % (0.0-10.0); NEUT # 4.2 K/uL (1.8-7.0); NEUT % 74.1 % (50.0-75.0); RBC 3.05 Mil/uL (3.80-5.20); RED CELL DISTRIBUTION WIDTH 13.4 % (11.5-14.5); WHITE BLOOD COUNT 5.7 K/uL (4.8-10.8)
[2018-12-31] MEDS: Naproxen 550 mg Tab PO SCH (10:06)
[2018-12-31] MEDS: Belladonna-Phenobarbital PO SCH ×2 (10:06→14:28)
[2018-12-31 10:07] LABS: BLOOD UREA NITROGEN 21 mg/dL (7-17); CALCIUM 8.7 mg/dl (8.6-10.4); GFR NON-AFRICAN AMERICAN 55
[2018-12-31] MEDS ORDERED: Propofol 10 mg/ml Inj (20 ML) ONE (12:01)
[2018-12-31] MEDS ORDERED: Magnesium Citrate Oral SOL (300 ml) PO ONE (14:05)
[2018-12-31] MEDS ORDERED: Lidocaine 5% Patch TD SCH ×2 (14:45)
--- NOTE | 2018-12-31 14:49 | CP.PCM.PN ---
Subjective - Date & Time of Evaluation Date of Evaluation: 12/31/18 Time of Evaluation: 11:00 - Subjective Subjective: patient seen today denies any abdominal pain, N/V/D , c/o R thigh pain down to the r knee area vss and labs - reviewed - stable s/p colonoscopy - incomplete , prep was not good , Dr. Sims wants to repeat tomorrow and patient refused Objective - Vital Signs/Intake and Output Vital Signs (last 24 hours): Temp Pulse Resp BP Pulse Ox 98.7 F 62 20 145/68 99 12/31/18 08:05 12/31/18 08:05 12/31/18 08:05 12/31/18 10:08 12/31/18 08:05 Intake and Output: 12/31/18 12/31/18 06:59 18:59 Intake Total 1240 100 Balance 1240 100 - Medications Medications: Current Medications Amlodipine Besylate (Norvasc) 10 mg PO DAILY [facility] Last Admin: 12/31/18 10:09 Dose: 10 mg Belladonna/Phenobarbital () 1 tab PO TID [facility] Last Admin: 12/31/18 14:28 Dose: Not Given Bisacodyl (Dulcolax) 10 mg PO Q24H [facility] Last Admin: 12/30/18 18:45 Dose: Not Given Bisacodyl (Dulcolax) 10 mg PO ONCE ONE Stop: 12/31/18 17:01 Dextrose (Dextrose 50% Inj) 0 ml IV STAT PRN; Protocol PRN Reason: Hypoglycemia Protocol Dextrose (Glutose 15) 0 gm PO ONCE PRN; Protocol PRN Reason: Hypoglycemia Protocol Enalapril Maleate (Vasotec) 20 mg PO BID [facility] Last Admin: 12/31/18 10:08 Dose: 20 mg Enoxaparin Sodium (Lovenox) 30 mg SC DAILY [facility] Last Admin: 12/29/18 09:19 Dose: 30 mg Ferrous Sulfate (Feosol) 325 mg PO DAILY [facility] Last Admin: 12/29/18 09:21 Dose: 325 mg Glucagon (Glucagen Diagnostic Kit) 0 mg IM STAT PRN; Protocol PRN Reason: Hypoglycemia Protocol Insulin Human Regular (Novolin R) 0 unit SC ACHS [facility]; Protocol Last Admin: 12/31/18 11:46 Dose: Not Given Lidocaine (Lidoderm) 1 ea TD DAILY [facility] Metoclopramide HCl (Reglan) 10 mg IVP ACHS [facility] Last Admin: 12/31/18 11:50 Dose: Not Given Naproxen (Anaprox Ds) 550 mg PO BID [facility] Last Admin: 12/31/18 10:06 Dose: Not Given Pantoprazole Sodium (Protonix Inj) 40 mg IVP DAILY [facility] Last Admin: 12/31/18 10:09 Dose: 40 mg - Labs Labs: 12/31/18 09:47 12/31/18 09:47 PT 12.2 SECONDS (9.7-12.2) 12/29/18 20:21 INR 1.1 12/29/18 20:21 APTT 24 SECONDS (21-34) 12/29/18 20:21 Assessment and Plan - Assessment and Plan (Free Text) Assessment: A/P 73 yr old female admitted with abdominal pain, nausea, vomit and unable to tolerate PO and R thigh pain s/p EGD(SEE full report for details) s/p colonoscopy - incomplete due to poor preparation hgb- stable patient refused repeat colonoscopy tmw , stated resolves abdominal pain , states she came for R upper thigh pain , partially improved with pain medication wants to go home CT DONE LE- 12/27 - There is no evidence of suspicious mass at the visualized portion of the right thigh. No evidence of abscess formation or discrete fluid collection. Nonspecific mild subcutaneous fat stranding noted at the medial aspect of the upper right thigh. The right femoral vein and artery are patent. No evidence of destructive bony lesion. The visualized portion of the right hip is grossly unremarkable. dopper LE - negative D/w Dr. Clayton, cleared for disacharge home today and continue naproxyn, lidoderm patch and PT and f/u with his offic ein 1 week discharge plan discussed with patient an dfamily at bed bhanu e who understands and agrees with plan
[2018-12-31 16:48] VITALS: BP 130/71; PULSE 85; RESP 20; TEMP 98.9; O2SAT 98
[2018-12-31] MEDS ORDERED: Bisacodyl 5mg EC Tab PO ONE (17:00)
--- NOTE | 2018-12-31 21:04 | CP.PCM.DIS ---
Provider - Provider Date of Admission: 12/28/18 06:40 Attending physician: Sheldon Clayton MD Consults: 12/28/18 11:07 Gastroenterology Consult Routine Comment: Consulting Provider: Bhavik Sims Consulting Physician: Bhavik Sims Reason for Consult: d.gastroparesis 12/28/18 18:50 Cardiology Consult Routine Comment: Consulting Provider: Daniel Georges Consulting Physician: Daniel Georges Reason for Consult: htn Time Spent in preparation of Discharge (in minutes): 30 Hospital Course - Lab Results Lab Results: Most Recent Lab Values WBC 5.7 K/uL (4.8-10.8) 12/31/18 09:47 RBC 3.05 Mil/uL (3.80-5.20) L 12/31/18 09:47 Hgb 9.7 g/dL (11.0-16.0) L 12/31/18 09:47 Hct 30.0 % (34.0-47.0) L 12/31/18 09:47 MCV 98.2 fL (81.0-99.0) 12/31/18 09:47 MCH 31.7 pg (27.0-31.0) H 12/31/18 09:47 MCHC 32.3 g/dL (33.0-37.0) L 12/31/18 09:47 RDW 13.4 % (11.5-14.5) 12/31/18 09:47 Plt Count 311 K/uL (130-400) 12/31/18 09:47 MPV 7.2 fL (7.2-11.7) 12/31/18 09:47 Neut % (Auto) 74.1 % (50.0-75.0) 12/31/18 09:47 Lymph % (Auto) 17.3 % (20.0-40.0) L 12/31/18 09:47 Hamilton % (Auto) 6.7 % (0.0-10.0) 12/31/18 09:47 Eos % (Auto) 1.2 % (0.0-4.0) 12/31/18 09:47 Baso % (Auto) 0.7 % (0.0-2.0) 12/31/18 09:47 Neut # (Auto) 4.2 K/uL (1.8-7.0) 12/31/18 09:47 Lymph # (Auto) 1.0 K/uL (1.0-4.3) 12/31/18 09:47 Hamilton # (Auto) 0.4 K/uL (0.0-0.8) 12/31/18 09:47 Eos # (Auto) 0.1 K/uL (0.0-0.7) 12/31/18 09:47 Baso # (Auto) 0.0 K/uL (0.0-0.2) 12/31/18 09:47 Neutrophils % (Manual) 90 % (50-75) H 12/28/18 05:08 Lymphocytes % (Manual) 7 % (20-40) L 12/28/18 05:08 Monocytes % (Manual) 3 % (0-10) 12/28/18 05:08 Platelet Estimate Normal (NORMAL) 12/28/18 05:08 Large Platelets Present 12/28/18 05:08 Polychromasia Slight 12/28/18 05:08 Anisocytosis (manual) Slight 12/28/18 05:08 Macrocytosis (manual) Slight 12/28/18 05:08 PT 12.2 SECONDS (9.7-12.2) 12/29/18 20:21 INR 1.1 12/29/18 20:21 APTT 24 SECONDS (21-34) 12/29/18 20:21 Sodium 131 mmol/L (132-148) L 12/31/18 09:47 Potassium 4.2 mmol/L (3.6-5.2) 12/31/18 09:47 Chloride 98 mmol/L (98-107) 12/31/18 09:47 Carbon Dioxide 28 mmol/L (22-30) 12/31/18 09:47 Anion Gap 9 (10-20) L 12/31/18 09:47 BUN 21 mg/dL (7-17) H 12/31/18 09:47 Creatinine 1.0 mg/dL (0.7-1.2) 12/31/18 09:47 Est GFR ( Amer) > 60 12/31/18 09:47 Est GFR (Non-Af Amer) 55 12/31/18 09:47 POC Glucose (mg/dL) 168 mg/dL (65-110) H 12/31/18 11:24 Random Glucose 141 mg/dL (65-105) H D 12/31/18 09:47 Calcium 8.7 mg/dl (8.6-10.4) 12/31/18 09:47 Total Bilirubin 0.9 mg/dL (0.2-1.3) 12/28/18 05:08 AST 29 U/L (14-36) 12/28/18 05:08 ALT 18 U/L (9-52) 12/28/18 05:08 Alkaline Phosphatase 78 U/L (38-126) 12/28/18 05:08 Total Protein 7.2 g/dL (6.3-8.3) 12/28/18 05:08 Albumin 4.2 g/dL (3.5-5.0) 12/28/18 05:08 Globulin 3.0 gm/dL (2.2-3.9) 12/28/18 05:08 Albumin/Globulin Ratio 1.4 (1.0-2.1) 12/28/18 05:08 Amylase 81 U/L (30-110) 12/29/18 16:53 Lipase 75 U/L (23-300) 12/29/18 16:53 Carcinoembryonic Ag 3.6 ng/mL (0-3.0) H 12/29/18 18:46 CA 125 Antigen < 5.5 U/mL (0-35) 12/29/18 18:46 Urine Color Yellow (YELLOW) 12/28/18 15:10 Urine Clarity Hazy (Clear) 12/28/18 15:10 Urine pH 6.0 (5.0-8.0) 12/28/18 15:10 Ur Specific [place] 1.020 (1.003-1.030) 12/28/18 15:10 Urine Protein 3+ mg/dL (NEGATIVE) H 12/28/18 15:10 Urine Glucose (UA) 2+ mg/dL (Normal) H 12/28/18 15:10 Urine Ketones Trace mg/dL (NEGATIVE) 12/28/18 15:10 Urine Blood 1+ (NEGATIVE) H 12/28/18 15:10 Urine Nitrate Negative (NEGATIVE) 12/28/18 15:10 Urine Bilirubin Negative (NEGATIVE) 12/28/18 15:10 Urine Urobilinogen Normal mg/dL (0.2-1.0) 12/28/18 15:10 Ur Leukocyte Esterase Neg Peter/uL (Negative) 12/28/18 15:10 Urine WBC (Auto) 1 /hpf (0-5) 12/28/18 15:10 Urine RBC (Auto) 7 /hpf (0-3) H 12/28/18 15:10 Ur Squamous Epith Cells 4 /hpf (0-5) 12/28/18 15:10 Urine Bacteria Rare (<OCC) 12/28/18 07:14 Discharge Plan - Discharge Medications Prescriptions: Lidocaine 5% [Lidoderm] 1 ea TD DAILY #15 patch Naproxen 500 mg PO BID #30 tab - Follow Up Plan Condition: FAIR Disposition: HOME/ ROUTINE Instructions: Lidocaine (Topical), Acute Abdomen (Belly Pain), Adult (DC), Nausea and Vomiting, Adult (DC), Gastroparesis (Delayed Gastric Emptying) (DC), Naproxen Referrals: Sheldon Clayton MD [Staff Provider] -
== END 2018-12-31 16:30 | disposition home or self-care (01) | DRG 384 ==
LOC: C.ER 04:21 → C.9E 06:40 → C.3T 07:00
PROVIDERS: ADMIT Internal Medicine; ATTEND Internal Medicine
PROC: 0DB68ZX Excision of Stomach, Via Natural or Artificial Opening Endoscopic, Diagnostic (ICD-10-PCS; principal; 2018-12-30 11:02)
PROC: 0DJD8ZZ Inspection of Lower Intestinal Tract, Via Natural or Artificial Opening Endoscopic (ICD-10-PCS; 2018-12-31)
DX: K25.9 Gastric ulcer, unspecified as acute or chronic, without hemorrhage or perforation (principal); E78.5 Hyperlipidemia, unspecified; I10 Essential (primary) hypertension; K29.70 Gastritis, unspecified, without bleeding; Z79.4 Long term (current) use of insulin; F17.210 Nicotine dependence, cigarettes, uncomplicated; K29.00 Acute gastritis without bleeding; K44.9 Diaphragmatic hernia without obstruction or gangrene; K21.0 Gastro-esophageal reflux disease with esophagitis; K64.8 Other hemorrhoids; D50.9 Iron deficiency anemia, unspecified; E11.319 Type 2 diabetes mellitus with unspecified diabetic retinopathy without macular edema; E11.65 Type 2 diabetes mellitus with hyperglycemia; E86.0 Dehydration; M16.0 Bilateral primary osteoarthritis of hip